=== PATIENT | male | born 1955 | race Caucasian/White ===

== ENCOUNTER 2021-05-17 07:50 | Inpatient (IN) | payer MEDICARE, MEDICAID, SELFPAY ==
[2021-05-17] VITALS (7 sets, daily range): BP systolic 99–110; BP diastolic 50–77; PULSE 71–100; RESP 11–24; TEMP 36.9–38.7; O2SAT 84–100; BMI 22.1; BMI 15.8
--- NOTE | ~2021-05-17 | CT_ITS ---
EXAMINATION: CT HEAD WITHOUT CONTRAST CLINICAL INFORMATION: Acute mental status change COMPARISON: None TECHNIQUE: Contiguous axial imaging was performed from the skull base to vertex without intravenous administration of contrast. This CT examination was performed using dose optimization techniques as appropriate, variously including the following: *Automated exposure control *Adjustment of mA and/or kV according to patient size (this includes techniques or standardized protocols for targeted exams where dose is matched to indication/reason for exam; i.e. extremities or head) *Use of iterative reconstruction technique DLP: 927 mGy-cm FINDINGS: There is no evidence of an extra-axial collection. There is no evidence of intra-axial or extra-axial hemorrhage. There are atrophic changes of the posterior fossa/inferior cerebellum and prominent cisterna magna. The ventricles and extra-axial CSF spaces are otherwise appropriate. Melo-white matter differentiation is normal. No mass, mass effect or infarct is seen. No skull fracture is seen. Visualized paranasal sinuses, mastoid air cells and middle ears are clear. There is heterogeneous attenuation of the sphenoid sinus. No focal bone lesion is seen. There are degenerative changes of the temporomandibular joints. CT/CT head/brain wo con IMPRESSION: No acute findings. Atrophic changes in the posterior fossa.
--- NOTE | ~2021-05-17 | XR_ITS ---
EXAMINATION: XR CHEST CLINICAL INFORMATION: Fever and urinary retention COMPARISON: None TECHNIQUE: Frontal view of the chest was obtained. FINDINGS: The cardiac and mediastinal contours are normal. There is marked elevation of the left hemidiaphragm. There are increased right hilar markings with bronchial wall thickening and question of atelectasis or infiltrate. The left lung is not well visualized due to the elevated left hemidiaphragm. The visualized left upper lung appears clear. There is no pleural effusion or pneumothorax. Bony structures are unremarkable. XR/XR chest 1V IMPRESSION: Very elevated left hemidiaphragm. Increased right central lung markings suggestive of bronchial wall thickening and question peribronchial atelectasis or small infiltrate.
--- NOTE | ~2021-05-17 | CT_ITS ---
EXAMINATION: CT ANGIOGRAM OF THE CHEST WITH AND WITHOUT CONTRAST (CT PULMONARY ANGIOGRAM FOR PE) CLINICAL INFORMATION: Reason for Exam pt c sob hx of covid nonverbal low oxygen/fever COMPARISON: Chest x-ray earlier the same day. TECHNIQUE: Prior to contrast administration, noncontrast localization images were obtained. Subsequently, multidetector volumetric imaging was performed from the thoracic inlet to below the diaphragms following the administration of 85 mL Omnipaque 350 intravenous contrast. No contrast reaction reported Sagittal, coronal, and MIP oblique sagittal reformatted images were obtained on the CT workstation, uploaded to PACS, and reviewed. This CT examination was performed using dose optimization techniques as appropriate, variously including the following: *Automated exposure control *Adjustment of mA and/or kV according to patient size (this includes techniques or standardized protocols for targeted exams where dose is matched to indication/reason for exam; i.e. extremities or head) *Use of iterative reconstruction technique Total exam dose-length product 408 mGy-cm FINDINGS: QUALITY OF STUDY/CONTRAST BOLUS: Satisfactory. PULMONARY ARTERIES: No central or segmental pulmonary emboli. THORACIC AORTA: No aneurysm or dissection. LUNG: There are peribronchial nodular groundglass opacities seen in the right upper lobe and denser nodular opacities and patchy areas of airspace disease in the right lower lobe probably representing pneumonia. Given the dilated fluid-filled esophagus and stomach, possible aspiration should be considered. There is marked elevation of the left hemidiaphragm. There is adjacent subsegmental atelectasis or small pneumonia of the left lower lobe. PLEURA: No pleural effusion or pneumothorax. MEDIASTINUM: The stomach and esophagus are markedly dilated and fluid-filled. The heart does not appear enlarged. There is no pericardial effusion. There are no enlarged lymph nodes. CHEST WALL/AXILLA: No axillary or internal mammary lymphadenopathy. OSSEOUS STRUCTURES: No acute or suspicious osseous abnormality. UPPER ABDOMEN: No reflux of contrast into the hepatic veins to suggest elevated right heart pressures. CT/CT angio chest PE protocol IMPRESSION: No evidence of pulmonary embolism. Very high left hemidiaphragm. Very dilated fluid-filled esophagus and stomach. Right upper and right lower lobe pneumonia. Possible aspiration should be considered. VTE: negative
--- NOTE | ~2021-05-17 | XR_ITS ---
EXAMINATION: XR ABDOMEN KUB CLINICAL INDICATION: Follow-up dilated bowel COMPARISON: Previous KUB most recent 05/19/2021 TECHNIQUE: AP view of the abdomen. FINDINGS: There are gas filled loops of small and large bowel similar to previous exam. There is stool seen in the distal colon. There is no evidence of free air. No calcifications are seen. Bony structures are unremarkable. XR/XR KUB IMPRESSION: Gas-filled loops of small and large bowel and stool in the distal colon similar to previous exam.
--- NOTE | ~2021-05-17 | CT_ITS ---
EXAMINATION: CT ABDOMEN AND PELVIS WITH CONTRAST CLINICAL INFORMATION: Fever and urinary retention COMPARISON: Fever and urinary retention TECHNIQUE: Multidetector volumetric images were obtained from the superior aspect of the liver through the pubic symphysis following administration 85 mL of Omnipaque 350 intravenous contrast. Sagittal and coronal reformatted images were obtained on the technologist's workstation. Oral contrast: No This CT examination was performed using dose optimization techniques as appropriate, variously including the following: *Automated exposure control *Adjustment of mA and/or kV according to patient size (this includes techniques or standardized protocols for targeted exams where dose is matched to indication/reason for exam; i.e. extremities or head) *Use of iterative reconstruction technique DLP: 648 mGy-cm FINDINGS: LUNG BASES: See chest CT the same day LIVER, GALLBLADDER, AND BILIARY TREE: The liver is normal in size, shape, and attenuation. No focal hepatic lesion or biliary ductal dilatation is present. The gallbladder is unremarkable with no evidence of radiopaque gallstones, gallbladder wall thickening, or obvious pericholecystic inflammatory changes. PANCREAS: Unremarkable. SPLEEN: Unremarkable. ADRENAL GLANDS: Unremarkable. KIDNEYS AND URETERS: There are bilateral renal cysts. The kidneys are otherwise unremarkable. BLADDER: Bladder is compressed by the dilated stool-filled sigmoid colon. There may be mild bladder wall thickening and enhancement. There is question of a tiny amount of air in the bladder axial image 100 series 17. GASTROINTESTINAL TRACT: There is marked elevation of the left hemidiaphragm. The esophagus stomach and duodenum are very dilated and fluid-filled. The jejunum is normal in caliber. The obstruction and severe stasis or ileus should be considered. Possible lesion should be considered. The distal colon is very dilated and filled with stool suggestive of severe constipation and fecal impaction. There is apparent wall thickening of the right colon. This may be due to underdistention. The appendix is not seen. There is a small amount of fluid in the right lower quadrant. ABDOMINAL WALL: No significant hernia is appreciated. LYMPH NODES: Normal. VASCULAR: Unremarkable. PELVIC VISCERA: Unremarkable. OSSEOUS STRUCTURES: Unremarkable. CT/CT abdomen pelvis w con IMPRESSION: Very dilated fluid-filled esophagus, stomach and duodenum. The jejunum does not appear dilated. Distal duodenal obstruction and severe stasis or ileus should be considered. There is a severe constipation and fecal impaction. Small amount of ascites in the right lower quadrant. Significant mass effect on the bladder from a stool-filled colon. There is question of mild diffuse bladder wall enhancement and tiny amount of air in the right side of the bladder. Fleischner guidelines were followed.
--- NOTE | ~2021-05-17 | XR_ITS ---
EXAMINATION: XR ABDOMEN KUB CLINICAL INDICATION: Obstruction COMPARISON: Abdominal radiograph 05/18/[address] of the abdomen and pelvis 05/17/2021 TECHNIQUE: AP view of the abdomen. FINDINGS: Enteric tube with tip in the stomach, with side hole at the GE junction, similar to the prior study. Consider advancement. Slightly decreased gaseous distention of mid abdominal small bowel loops. Again demonstrated is air in the colon. There is a decreased amount of stool. No acute osseous abnormality. XR/XR KUB IMPRESSION: Decreased amount of stool in the colon, with improved but persistent gaseous distention of mid abdominal small bowel loops.
--- NOTE | ~2021-05-17 | XR_ITS ---
EXAMINATION: XR ABDOMEN KUB CLINICAL INDICATION: Dilated esophagus and duodenum. COMPARISON: CT abdomen and pelvis without contrast. TECHNIQUE: AP view of the abdomen. FINDINGS: There is a new nasogastric tube with its tip in the stomach and sidehole at the GE junction. Needs to be advanced by 10 cm. There is scattered gas seen throughout the colon but mildly dilated proximal small bowel loop similar previous study. There are mid smaller bowel loops are dilated as well. There is contrast visualized in the right abdomen likely distended bladder. There is likely fecal impaction. No gross bony abnormality seen. XR/XR KUB IMPRESSION: Moderately distended proximal small bowel loops and some prominence of distal small bowel loops but improved from CT abdomen/pelvis exam 12/17/2021. There is likely fecal impaction.
--- NOTE | 2021-05-17 08:08 | PC.NURSE ---
Bladder scan 684ml RN aware.
--- NOTE | 2021-05-17 08:27 | PC.NURSE ---
Pt bladder scanned, 684 mL present
--- NOTE | 2021-05-17 09:52 | PC.NURSE ---
Spoke with patient's HCP and brother, [facility] [phone]. States that he does not want any artificial life sustaining measures ; does not want compressions if patient's heart stops or a tube down patient's throat if his lungs deteriorate. Agreeable to fluids, antibiotics, imaging, and admission if needed.
[2021-05-17 09:55] LABS: MANUAL DIFF FLAG NO
[2021-05-17 09:57] LABS: Basophils Percent Auto 0.2 % (0-2); Hematocrit 41.1 % (42.0-52.0); Hemoglobin 13.4 g/dl (14.0-18.0); Imm Gran Abs Auto 0.04 X10*3/uL (0.00-0.03); Imm Gran Pct Auto 0.4 % (0.0-0.4); Lymphocytes Absolute Auto 1.2 X10*3/uL (1.2-4.9); Lymphocytes Percent Auto 13.5 % (20-40); Mean Corpuscular HGB Conc 32.6 g/dl (31.0-36.0); Mean Corpuscular Hemoglobin 31.6 pg (27.0-33.0); Mean Corpuscular Volume 96.9 fL (80.0-98.0); Mean Platelet Volume 10.8 fL (9.4-12.4); Monocytes Absolute Auto 0.6 X10*3/uL (0.1-1.2); Monocytes Percent Auto 6.2 % (2-11); Neutrophils Absolute Auto 7.2 x10*3/uL (2.0-8.3); Neutrophils Percent Auto 79.7 % (45-73); Platelet Count 145 X10*3/uL (160-400); Red Blood Count 4.24 X10*6/uL (4.60-5.80)
[2021-05-17 10:03] LABS: INTERNATIONAL NORM RATIO 1.4 (0.9-1.1); Prothrombin Time 16.5 SEC (9.9-13.0)
[2021-05-17 10:11] LABS: Lactic Acid 1.8 mmol/L (0.5-2.0)
[2021-05-17 10:12] LABS: COVID-19 Test Negative (Negative)
[2021-05-17] MEDS: 0.9 % Sodium Chloride 1,000 ML 999 ML IVCONT (10:17)
[2021-05-17] MEDS: Acetaminophen Supp 650 MG SUPP.RECT 975 MG PR (10:17)
[2021-05-17 11:14] LABS: Influenza A Negative (Negative); Influenza B2 Negative (Negative)
--- NOTE | 2021-05-17 11:16 | ED.FEVER ---
HPI - Fever General Chief Complaint: Fever Stated Complaint: fever Time Seen by Provider: 05/17/21 09:21 Source: patient and other ([facility] [employer] ) Mode of arrival: EMS Limitations: other (Patient nonverbal at baseline) History of Present Illness HPI Narrative: 65-year-old male who is currently in a prison presenting to the ED via EMS with prison staff financial risk manager at bedside who reports that the patient is nonverbal, severely contracted and has a history of a seizure currently on Depakote although his last seizure was 20 years ago with complaints of increased weakness with associated not wanting to eat or drink since yesterday and drooling. She reports that he is a total care patient, he uses a Ken lift for transfer, eats pureed diet. He has a brother who signed a MOLST form in 2017 and it was DNR/DNI and do not transfer to hospital therefore initially EMS did not want to transfer into the hospital and they were able to contact the brother who reported that the patient could be transferred to the hospital. The nurse Ray was able to feet to the brother [facility] [phone] and he reported ?that he did not want any artificial life sustaining measures such as CPR or ventilation or any artificial nutrition or dialysis or any noninvasive ventilation although he will accept blood work, x-rays, CT scans, IV fluids and IV antibiotics. Therefore I called the brother and I discussed this with him myself and he admitted to what the nurse Flor told me. He reports that he lives in [facility] and he will come here today to sign a new MOLST form. The brother also reported that the patient has a history of COVID in February last year and he had a single Alex and Alex vaccine he is unsure if he received a booster since then. Otherwise patient is not on any blood thinners. MD elicited complaint: fever and weakness Onset (ago): day(s) (Since yesterday) Related Data Home Medications Medication Instructions Recorded Confirmed Probiotic 1 cap PO DAILY 05/17/21 05/17/21 divalproex 500 mg tablet,delayed 1 tab PO BID 05/17/21 05/17/21 release loratadine 10 mg tablet 10 mg PO DAILY PRN 05/17/21 05/17/21 multivitamin 1 tab PO DAILY 05/17/21 05/17/21 omeprazole 40 mg capsule,delayed 1 cap PO DAILY 05/17/21 05/17/21 release Allergies Allergy/AdvReac Type Severity Reaction Status Date / Time No Known Allergies Allergy Verified 05/17/21 09:21 Review of Systems Review of Systems: Yes all other systems are reviewed and are negative and Unobtainable due to mental condition [facility] Past Medical History Attestation statement: The following information was validated with the patient. Social History Social History Advance Directives: No Advance Directives Information Provided: No Physical Exam Vital Signs: Vital Signs: Last Vital Signs Temp 99.6 F 05/17/21 12:00 Pulse 85 05/17/21 12:00 Resp 12 05/17/21 12:00 BP 109/65 05/17/21 12:00 Pulse Ox 97 05/17/21 12:00 BMI result Body Mass Index 15.8 vital signs have been reviewed as normal and appeared to be correct. Blood pressure normal. Heart rate normal. Respiration rate 24. Temperature 101.7. Oxygen saturation 84% on RA. Appearance: Alert. Nonverbal. Severely contracted. No acute distress. Head: Normal external exam. Normocephalic. Atraumatic. No Smiley signs noted. No raccoon eyes noted Eyes: PERRLA. EOMI. Conjunctiva and sclera normal. Eyelids normal. ENT: EAC normal. TM's Normal. No septal hematoma noted. No hemotympanum noted. Pharynx normal. Uvula midline. Moist mucous membranes. No lesions/ulcerations or masses noted on the tongue. Normal voice. No trismus noted. + Drooling noted. Neck: Normal inspection. Neck supple. FROM. No adenopathy. Thyroid Normal. No tracheal deviation noted. No crepitus is noted. No meningeal signs. No neck mass noted. No signs of trauma noted. CVS: Normal heart rate and rhythm. Heart sound normal. Pulses normal throughout. No murmurs/rales/gallops. Respiratory: No respiratory distress. Painless inspiration. Breath sounds normal. No wheezes/rales/rhonchi noted. Chest nontender. No crepitus is noted. No signs of trauma noted. No accessory muscle usage noted or decreased air movement noted. No signs of trauma. Abdomen: Soft and nontender. Bowel sounds normal in all 4 quadrants. No distention noted. No organomegaly noted. No visible injury noted. Back: No CVA tenderness. Full range of motion noted. Nontender. No signs of trauma. No rashes/lesion/induration/fluctuance or signs of infection noted. Skin: Skin warm and dry. Normal skin color. Normal skin turgor. No rashes/lesions/lacerations noted. Extremities: No lower extremity edema. No calf tenderness is noted. Extremities are severely contracted although there are no signs of infection or joint effusions. Neuro: Alert. Nonverbal. Severely contracted. No focal neuro deficits noted. Vascular: + radial pulses/+ 2 distal pedal pulses/+2 dorsalis pedis b/l. Normal cap refill. No cyanosis noted to upper extremity nails and lower extremity toes nails. Course Course Course Narrative: 9:20am - 65-year-old male who is currently in a prison presenting to the ED via EMS with prison staff financial risk manager at bedside who reports that the patient is nonverbal, severely contracted and has a history of a seizure currently on Depakote although his last seizure was 20 years ago with complaints of increased weakness with associated not wanting to eat or drink since yesterday and drooling. She reports that he is a total care patient, he uses a Ken lift for transfer, eats pureed diet. He has a brother who signed a MOLST form in 2017 and it was DNR/DNI and do not transfer to hospital therefore initially EMS did not want to transfer into the hospital and they were able to contact the brother who reported that the patient could be transferred to the hospital. The nurse Ray was able to feet to the brother [facility] [phone] and he reported ?that he did not want any artificial life sustaining measures such as CPR or ventilation or any artificial nutrition or dialysis or any noninvasive ventilation although he will accept blood work, x-rays, CT scans, IV fluids and IV antibiotics. Therefore I called the brother and I discussed this with him myself and he admitted to what the nurse Ray told me. He reports that he lives in [facility] and he will come here today to sign a new MOLST form. The brother also reported that the patient has a history of COVID in February last year and he had a single Alex and Alex vaccine he is unsure if he received a booster since then. Otherwise patient is not on any blood thinners. On exam patient is alert although nonverbal severely contracted. No acute neuro deficits are noted. Lungs clear to auscultation. CV RRR. Abdomen is soft and nontender. No rashes or signs of trauma throughout the entire body. Plan: Labs, blood culture, lactic acid, CT scan of brain, CTA of chest for PE, CT scan abdomen pelvis with IV contrast, UA, bladder scan/straight catheter Ferrera catheter, COVID and influenza swab. Provide a L of IV fluids with 975 mg of rectal Tylenol then re-evaluate. Reevaluation(s) Reevaluation #1: - Labs reviewed patient mild anemia with an H&H of 13.4/41.1. Platelet count 145. PT INR 16.5/1.4. BUN 28. Random glucose 124. AST 41. Troponin 6.1. Total protein 8.2. Albumin 3.4. Otherwise all other labs are within normal limits. - patient negative for COVID and flu. - CT scan of brain without contrast within normal limits no acute processes are noted. - chest x-ray revealed elevated left hemo diaphragm with increased right central lung markings suggestive of bronchial wall thickening and questioning peribronchial atelectasis or small infiltrate. - therefore at this time will obtain a CT scan of chest with contrast evaluate for possible PE and to evaluate for possible definite pneumonia due to chest x-ray unsure if this is atelectasis versus small infiltrate or any other acute process seen a CT scan abdomen pelvis with IV contrast to evaluate for possible intra-abdominal processes. - they were unable to straight cath or place a Ferrera and the patient after the bladder scan and when he was on a CT scan table he urinated the table therefore will continue to attempt to obtain a urine and re-evaluate. Awaiting for brother to come in to sign a new MOLST form. Will continue to monitor. Time: 12:20 Reevaluation #2: - CTA of chest for PE negative for PE although revealed very high left hemo diaphragm. Very dilated fluid-filled esophagus and stomach. Right upper and right lower lobe pneumonia. Possible aspiration should be considered. Therefore at this time a infectious source was found and patient will be given IV Zosyn at this time. Time: 13:43 Reevaluation #3: - CT scan of abdomen and pelvis with IV contrast revealed possible bowel impaction no obvious obstruction although unable to completely visualize. Therefore I consulted with surgery. Dr. Rodriguez. - also brother is at bedside and he signed a new MOLST form and patient is still DNR/DNI although he is now transferred to hospital. He also agrees to temporary artificial hydration and he also agreed to an NG tube. He does not want surgery at this time for his brother he is the legal guardian. - therefore I consulted with Dr. Rodriguez and Dr. Thomas. I will attempt to disimpact the patient with an enema and then place an NG tube in patient will be admitted to Dr. Thakkar brother and prison staff member understand and agree to this plan they are at bedside. Time: 14:44 Additional Reevaluation(s): - patient is now status post stool impaction. I was able to disimpact moderate amount of stool and patient is now smiling on exam appears much more comfortable. Patient will be admitted. Rosemary Lay Out Worker at [phone] MDM - Fever Medical Records Attestation: I reviewed the patient's medical records. Lab Data Attestation: I reviewed the patient's lab results. Result diagrams: 05/17/21 09:40 05/17/21 10:52 Labs: Lab Results 05/17/21 05/17/21 05/17/21 Range/Units 09:40 09:40 09:40 WBC 9.0 (4.8-10.8) X10*3/uL RBC 4.24 L (4.60-5.80) X10*6/uL Hgb 13.4 L (14.0-18.0) g/dl Hct 41.1 L (42.0-52.0) % MCV 96.9 (80.0-98.0) fL MCH 31.6 (27.0-33.0) pg MCHC 32.6 (31.0-36.0) g/dl RDW 15.0 (11.0-16.0) % Plt Count 145 L (160-400) X10*3/uL MPV 10.8 (9.4-12.4) fL Immature Gran % (Auto) 0.4 (0.0-0.4) % Neut % (Auto) 79.7 H (45-73) % Lymph % (Auto) 13.5 L (20-40) % [place] % (Auto) 6.2 (2-11) % Eos % (Auto) 0.0 (0-4) % Baso % (Auto) 0.2 (0-2) % Lymph # (Auto) 1.2 (1.2-4.9) X10*3/uL [place] # (Auto) 0.6 (0.1-1.2) X10*3/uL Eos # (Auto) 0.0 (0.0-0.4) X10*3/uL Baso # (Auto) 0.0 (0.0-0.2) X10*3/uL Abs Immat Gran (auto) 0.04 H (0.00-0.03) X10*3/uL Absolute Neuts (auto) 7.2 (2.0-8.3) x10*3/uL Absolute Nucleated RBC 0.000 (0.0-0.012) X10*3/uL Nucleated RBC % (auto) 0.0 (0.0-0.2) /100WBC Hold Purple Top PT 16.5 H (9.9-13.0) SEC INR 1.4 H (0.9-1.1) Sodium (135-145) mmol/L Potassium (3.3-5.1) mmol/L Chloride (96-108) mmol/L Carbon Dioxide (22-29) mmol/L Anion Gap (12-20) BUN (9-16) mg/dL Creatinine (0.5-1.4) mg/dL Estim Creat Clear Calc Estimated GFR Random Glucose (60-115) mg/dL Lactic Acid 1.8 (0.5-2.0) mmol/L Calcium (8.4-10.2) mg/dL Magnesium (1.6-2.6) mg/dL Total Bilirubin (0.0-1.0) mg/dL AST (5-37) U/L ALT (0-40) U/L Alkaline Phosphatase (39-117) U/L Troponin I High Sens (<3.5-35.0) ng/L Total Protein (6.5-8.0) g/dL Albumin (3.5-5.0) g/dL COVID-19 ([facility]ON) (Negative) COVID-19 Clin Com Influenza Type A (CORIN) (Negative) Influenza Type B (CORIN) (Negative) Influenza A & B Note 05/17/21 05/17/21 05/17/21 Range/Units 09:40 09:40 09:40 WBC (4.8-10.8) X10*3/uL RBC (4.60-5.80) X10*6/uL Hgb (14.0-18.0) g/dl Hct (42.0-52.0) % MCV (80.0-98.0) fL MCH (27.0-33.0) pg MCHC (31.0-36.0) g/dl RDW (11.0-16.0) % Plt Count (160-400) X10*3/uL MPV (9.4-12.4) fL Immature Gran % (Auto) (0.0-0.4) % Neut % (Auto) (45-73) % Lymph % (Auto) (20-40) % [place] % (Auto) (2-11) % Eos % (Auto) (0-4) % Baso % (Auto) (0-2) % Lymph # (Auto) (1.2-4.9) X10*3/uL [place] # (Auto) (0.1-1.2) X10*3/uL Eos # (Auto) (0.0-0.4) X10*3/uL Baso # (Auto) (0.0-0.2) X10*3/uL Abs Immat Gran (auto) (0.00-0.03) X10*3/uL Absolute Neuts (auto) (2.0-8.3) x10*3/uL Absolute Nucleated RBC (0.0-0.012) X10*3/uL Nucleated RBC % (auto) (0.0-0.2) /100WBC Hold Purple Top SEE NOTE PT (9.9-13.0) SEC INR (0.9-1.1) Sodium (135-145) mmol/L Potassium (3.3-5.1) mmol/L Chloride (96-108) mmol/L Carbon Dioxide (22-29) mmol/L Anion Gap (12-20) BUN (9-16) mg/dL Creatinine (0.5-1.4) mg/dL Estim Creat Clear Calc Estimated GFR Random Glucose (60-115) mg/dL Lactic Acid (0.5-2.0) mmol/L Calcium (8.4-10.2) mg/dL Magnesium (1.6-2.6) mg/dL Total Bilirubin (0.0-1.0) mg/dL AST (5-37) U/L ALT (0-40) U/L Alkaline Phosphatase (39-117) U/L Troponin I High Sens 6.1 (<3.5-35.0) ng/L Total Protein (6.5-8.0) g/dL Albumin (3.5-5.0) g/dL COVID-19 ([facility]ON) Negative (Negative) COVID-19 Clin Com See Note Influenza Type A (CORIN) (Negative) Influenza Type B (CORIN) (Negative) Influenza A & B Note 05/17/21 05/17/21 05/17/21 Range/Units 10:52 10:53 12:50 WBC (4.8-10.8) X10*3/uL RBC (4.60-5.80) X10*6/uL Hgb (14.0-18.0) g/dl Hct (42.0-52.0) % MCV (80.0-98.0) fL MCH (27.0-33.0) pg MCHC (31.0-36.0) g/dl RDW (11.0-16.0) % Plt Count (160-400) X10*3/uL MPV (9.4-12.4) fL Immature Gran % (Auto) (0.0-0.4) % Neut % (Auto) (45-73) % Lymph % (Auto) (20-40) % [place] % (Auto) (2-11) % Eos % (Auto) (0-4) % Baso % (Auto) (0-2) % Lymph # (Auto) (1.2-4.9) X10*3/uL [place] # (Auto) (0.1-1.2) X10*3/uL Eos # (Auto) (0.0-0.4) X10*3/uL Baso # (Auto) (0.0-0.2) X10*3/uL Abs Immat Gran (auto) (0.00-0.03) X10*3/uL Absolute Neuts (auto) (2.0-8.3) x10*3/uL Absolute Nucleated RBC (0.0-0.012) X10*3/uL Nucleated RBC % (auto) (0.0-0.2) /100WBC Hold Purple Top PT (9.9-13.0) SEC INR (0.9-1.1) Sodium 144 (135-145) mmol/L Potassium 4.9 (3.3-5.1) mmol/L Chloride 104 (96-108) mmol/L Carbon Dioxide 28 (22-29) mmol/L Anion Gap 17 (12-20) BUN 28 H (9-16) mg/dL Creatinine 0.80 (0.5-1.4) mg/dL Estim Creat Clear Calc 72.7 Estimated GFR > 60 Random Glucose 124 H (60-115) mg/dL Lactic Acid (0.5-2.0) mmol/L Calcium 9.3 (8.4-10.2) mg/dL Magnesium 1.8 (1.6-2.6) mg/dL Total Bilirubin 0.5 (0.0-1.0) mg/dL AST 41 H (5-37) U/L ALT 23 (0-40) U/L Alkaline Phosphatase 63 (39-117) U/L Troponin I High Sens 8.7 (<3.5-35.0) ng/L Total Protein 8.2 H (6.5-8.0) g/dL Albumin 3.4 L (3.5-5.0) g/dL COVID-19 ([facility]ON) (Negative) COVID-19 Clin Com Influenza Type A (CORIN) Negative (Negative) Influenza Type B (CORIN) Negative (Negative) Influenza A & B Note See Note Imaging Data CT scan of brain without contrast: Attestation: I personally reviewed and interpreted this imaging study as follows: Radiologist's impression: FINDINGS: There is no evidence of an extra-axial collection. There is no evidence of intra-axial or extra-axial hemorrhage. There are atrophic changes of the posterior fossa/inferior cerebellum and prominent cisterna magna. The ventricles and extra-axial CSF spaces are otherwise appropriate. Melo-white matter differentiation is normal. No mass, mass effect or infarct is seen. No skull fracture is seen. Visualized paranasal sinuses, mastoid air cells and middle ears are clear. There is heterogeneous attenuation of the sphenoid sinus. No focal bone lesion is seen. There are degenerative changes of the temporomandibular joints. CT/CT head/brain wo con IMPRESSION: No acute findings. Atrophic changes in the posterior fossa. Chest x-ray: Attestation: I personally reviewed and interpreted this imaging study as follows: Radiologist's impression: FINDINGS: The cardiac and mediastinal contours are normal. There is marked elevation of the left hemidiaphragm. There are increased right hilar markings with bronchial wall thickening and question of atelectasis or infiltrate. The left lung is not well visualized due to the elevated left hemidiaphragm. The visualized left upper lung appears clear. There is no pleural effusion or pneumothorax. Bony structures are unremarkable. XR/XR chest 1V IMPRESSION: Very elevated left hemidiaphragm. Increased right central lung markings suggestive of bronchial wall thickening and question peribronchial atelectasis or small infiltrate. CTA of chest for PE: Attestation: I personally reviewed and interpreted this imaging study as follows: Radiologist's impression: FINDINGS: QUALITY OF STUDY/CONTRAST BOLUS: Satisfactory. PULMONARY ARTERIES: No central or segmental pulmonary emboli.? THORACIC AORTA: No aneurysm or dissection. LUNG: There are peribronchial nodular groundglass opacities seen in the right upper lobe and denser nodular opacities and patchy areas of airspace disease in the right lower lobe probably representing pneumonia. Given the dilated fluid-filled esophagus and stomach, possible aspiration should be considered. There is marked elevation of the left hemidiaphragm. There is adjacent subsegmental atelectasis or small pneumonia of the left lower lobe. PLEURA: No pleural effusion or pneumothorax. MEDIASTINUM: The stomach and esophagus are markedly dilated and fluid-filled. The heart does not appear enlarged. There is no pericardial effusion. There are no enlarged lymph nodes. CHEST WALL/AXILLA: No axillary or internal mammary lymphadenopathy. OSSEOUS STRUCTURES: No acute or suspicious osseous abnormality.? UPPER ABDOMEN:? No reflux of contrast into the hepatic veins to suggest elevated right heart pressures. CT/CT angio chest PE protocol IMPRESSION: No evidence of pulmonary embolism. Very high left hemidiaphragm. Very dilated fluid-filled esophagus and stomach. Right upper and right lower lobe pneumonia. Possible aspiration should be considered. ? VTE: negative CT scan abdomen pelvis with IV contrast: Attestation: I personally reviewed and interpreted this imaging study as follows: Radiologist's impression: FINDINGS: LUNG BASES: See chest CT the same day LIVER, GALLBLADDER, AND BILIARY TREE: The liver is normal in size, shape, and attenuation. No focal hepatic lesion or biliary ductal dilatation is present. The gallbladder is unremarkable with no evidence of radiopaque gallstones, gallbladder wall thickening, or obvious pericholecystic inflammatory changes.? PANCREAS: Unremarkable.? SPLEEN: Unremarkable.? ADRENAL GLANDS: Unremarkable.? KIDNEYS AND URETERS: There are bilateral renal cysts. The kidneys are otherwise unremarkable.? BLADDER: Bladder is compressed by the dilated stool-filled sigmoid colon. There may be mild bladder wall thickening and enhancement. There is question of a tiny amount of air in the bladder axial image 100 series 17.? GASTROINTESTINAL TRACT: There is marked elevation of the left hemidiaphragm. The esophagus stomach and duodenum are very dilated and fluid-filled. The jejunum is normal in caliber. The obstruction and severe stasis or ileus should be considered. Possible lesion should be considered. The distal colon is very dilated and filled with stool suggestive of severe constipation and fecal impaction. There is apparent wall thickening of the right colon. This may be due to underdistention. The appendix is not seen. There is a small amount of fluid in the right lower quadrant.? ABDOMINAL WALL: No significant hernia is appreciated.? LYMPH NODES: Normal. VASCULAR: Unremarkable. PELVIC VISCERA: Unremarkable.? OSSEOUS STRUCTURES: Unremarkable.? CT/CT abdomen pelvis w con IMPRESSION: Very dilated fluid-filled esophagus, stomach and duodenum. The jejunum does not appear dilated. Distal duodenal obstruction and severe stasis or ileus should be considered. There is a severe constipation and fecal impaction. Small amount of ascites in the right lower quadrant. Significant mass effect on the bladder from a stool-filled colon. There is question of mild diffuse bladder wall enhancement and tiny amount of air in the right side of the bladder. ? Fleischner guidelines were followed. ECG Data ECG #1: Attestation: I personally reviewed and interpreted this ECG as follows: ECG interpretation date: 05/17/21 ECG interpretation time: 10:10 Interpretation: Sinus rhythm with short ND with premature atrial complex is within circulate of 88 with nonspecific T-wave abnormalities no acute ischemic change are noted. No prior EKG to compare to in our system at this time. Critical Care Time Critical Care Time Critical Care Time: Yes Total Critical Care Time: 60 Attestation: I personally attest to this time spent taking care of the patient Discharge Plan Discharge Clinical Impression: Pneumonia, Fecal impaction, Fever Patient Disposition: Admitted As Inpatient
[2021-05-17 11:20] LABS: Alanine Aminotransferase 23 U/L (0-40); Albumin Level 3.4 g/dL (3.5-5.0); Alkaline Phosphatase 63 U/L (39-117); Anion Gap 17 (12-20); Aspartate Amino Transferase 41 U/L (5-37); Bilirubin Total 0.5 mg/dL (0.0-1.0); Blood Urea Nitrogen 28 mg/dL (9-16); Calcium 9.3 mg/dL (8.4-10.2); Carbon Dioxide 28 mmol/L (22-29); Chloride 104 mmol/L (96-108); Creatinine Clr Calc Pharmacy 72.7; Estimated Glomerular Filt Rate > 60; Glucose Random 124 mg/dL (60-115); Magnesium 1.8 mg/dL (1.6-2.6); Potassium 4.9 mmol/L (3.3-5.1); Sodium 144 mmol/L (135-145); Total Protein 8.2 g/dL (6.5-8.0)
[2021-05-17 11:44] LABS: Troponin-I High Sensitivity 6.1 ng/L (<3.5-35.0)
[2021-05-17] MEDS: iohexoL 350 MG/ML 100 ML INFUS..BTL IV (12:17)
[2021-05-17 13:16] LABS: Troponin-I High Sensitivity 8.7 ng/L (<3.5-35.0)
--- NOTE | 2021-05-17 13:56 | PHA.MEDREC ---
Pharmacy Consult ? Medication Reconciliation Pharmacy has completed the medication reconciliation. Patient has a medication list from the long term. Dean BlackD
[2021-05-17] MEDS: Piperacillin Sodium/Tazobactam 3.375 GM in 0.9 % Sodium Chloride 50 ML IV ×2 (13:57→21:39)
[2021-05-17] MEDS: Sodium Phosphate,Mono-Dibasic 133 ML ENEMA PR ×2 (14:48→15:01)
--- NOTE | 2021-05-17 15:22 | MHC.CM.ED ---
Rosemary from retirement can be reached via telephone at [phone].
[2021-05-17] MEDS: Lidocaine HCl 4 % Laryng-O-Jet 4 ML 1 APPL TOPICAL (15:27)
--- NOTE | 2021-05-17 15:29 | PM.IMHP ---
History of Present Illness Date of Service: 05/17/21 Chief Complaint: Altered mentation, lethargy a 65 years old male with PMH of development chin inch, CRS who lives in a assisted presented by the staff for altered mentation, decreased oral intake and lethargy. The staff reports that over the last few days he has been less active and weaker with decreased oral intake. This morning the found him drooling with altered mentation and he was not responding much so they decided to bring him to the hospital. The patient is nonverbal, uses Ken lift for transfers and eat pureed diet. I met with his brother who reported that his mother was taking care of his older brother until she passed and he was moved to assisted. there was a confusion about his code status until his pressors HCP sign and you most form requesting not to do any heroic measures and to treat his brother with dignity a without trying to prolong his life. The patient was found to have significant amount of stool burden with concern of ileus or intestinal obstruction. Many 1 disimpaction was done in the emergency with success as the patient start having bowel movement and he looks more comfortable when I interviewed him. Images were concerning for possible aspiration as well. Admitted for further evaluation and treatment. Review of Systems Review of Systems: Nonverbal [facility] Medical History (Updated 05/17/21 @ 15:36 by Mando Cadena MD) Intellectual disability Family History Brother No problems noted. Social History Advance Directives: No Advance Directives Information Provided: No Meds Allergies Allergy/AdvReac Type Severity Reaction Status Date / Time No Known Allergies Allergy Verified 05/17/21 09:21 Active Medications: Current Medications Acetaminophen (Acetaminophen 325 Mg Tablet) 650 mg PO Q6H PRN PRN Reason: Pain, Mild (Pain Scale 1-3) Enoxaparin Sodium (Enoxaparin Sodium 40 Mg/0.4 Ml Syringe) 40 mg SUBCUT Q24H [facility] Lactated Ringer's (Lr) 1,000 mls @ 80 mls/hr IVCONT .[id number] SHARON Ondansetron HCl (Ondansetron Hcl 4 Mg/2 Ml Vial) 4 mg IVPUSH Q8H PRN PRN Reason: Nausea and Vomiting Pharmacy Consult (Consult Rx Perform Med Rec) 1 each MISCELLANE ONCE PRN PRN Reason: Consult order Sodium Chloride (0.9 % Sodium Chloride Flush 3 Ml Syringe) [facility] Medications Medication Instructions Recorded Confirmed Last Taken Type Probiotic 1 cap PO DAILY 05/17/21 05/17/21 05/16/21 History divalproex 500 mg tablet,delayed 1 tab PO BID 05/17/21 05/17/21 05/16/21 History release loratadine 10 mg tablet 10 mg PO DAILY PRN 05/17/21 05/17/21 05/16/21 History multivitamin 1 tab PO DAILY 05/17/21 05/17/21 05/16/21 History omeprazole 40 mg capsule,delayed 1 cap PO DAILY 05/17/21 05/17/21 05/16/21 History release Physical Exam Vital Signs and Narrative: Vital Signs: Last Vital Signs Temp 99.6 F 05/17/21 12:00 Pulse 85 05/17/21 12:00 Resp 12 05/17/21 12:00 BP 109/65 05/17/21 12:00 Pulse Ox 97 05/17/21 12:00 BMI result Body Mass Index 15.8 Const: Other: Constitutional : Alert, mildly distressed but overall comfortable, very thin and cachectic looking Neck : Normal inspection, Supple Cardiovascular : RRR, S1 S2, no lower extremity edema Respiratory : failure bilateral air entry decreased mainly on the right side with basal crackles noted, no wheezes Gastrointestinal: soft, lax, decreased bowel sounds, no tenderness noted Skin : Warm, Dry Neurological : Alert , nonverbal, No focal deficit can not be assessed Results Labs CBC and Chem 7: 05/17/21 09:40 05/17/21 10:52 Labs: Laboratory Results - last 24 hr 05/17/21 05/17/21 05/17/21 09:40 09:40 09:40 MCV 96.9 MCH 31.6 MCHC 32.6 RDW 15.0 Plt Count 145 L MPV 10.8 Immature Gran % (Auto) 0.4 Neut % (Auto) 79.7 H Lymph % (Auto) 13.5 L [place] % (Auto) 6.2 Eos % (Auto) 0.0 Baso % (Auto) 0.2 Lymph # (Auto) 1.2 [place] # (Auto) 0.6 Eos # (Auto) 0.0 Baso # (Auto) 0.0 Abs Immat Gran (auto) 0.04 H Absolute Neuts (auto) 7.2 Absolute Nucleated RBC 0.000 Nucleated RBC % (auto) 0.0 Hold Purple Top PT 16.5 H INR 1.4 H Anion Gap Estim Creat Clear Calc Estimated GFR Random Glucose Lactic Acid 1.8 Calcium Magnesium Total Bilirubin AST ALT Alkaline Phosphatase Total Protein Albumin COVID-19 (ASTON) COVID-19 Clin Com Influenza Type A (CORIN) Influenza Type B (CORIN) Influenza A & B Note 05/17/21 05/17/21 05/17/21 09:40 09:40 10:52 MCV MCH MCHC RDW Plt Count MPV Immature Gran % (Auto) Neut % (Auto) Lymph % (Auto) [place] % (Auto) Eos % (Auto) Baso % (Auto) Lymph # (Auto) [place] # (Auto) Eos # (Auto) Baso # (Auto) Abs Immat Gran (auto) Absolute Neuts (auto) Absolute Nucleated RBC Nucleated RBC % (auto) Hold Purple Top SEE NOTE PT INR Anion Gap 17 Estim Creat Clear Calc 72.7 Estimated GFR > 60 Random Glucose 124 H Lactic Acid Calcium 9.3 Magnesium 1.8 Total Bilirubin 0.5 AST 41 H ALT 23 Alkaline Phosphatase 63 Total Protein 8.2 H Albumin 3.4 L COVID-19 (ASTON) Negative COVID-19 Clin Com See Note Influenza Type A (CORIN) Influenza Type B (CORIN) Influenza A & B Note 05/17/21 10:53 MCV MCH MCHC RDW Plt Count MPV Immature Gran % (Auto) Neut % (Auto) Lymph % (Auto) [place] % (Auto) Eos % (Auto) Baso % (Auto) Lymph # (Auto) [place] # (Auto) Eos # (Auto) Baso # (Auto) Abs Immat Gran (auto) Absolute Neuts (auto) Absolute Nucleated RBC Nucleated RBC % (auto) Hold Purple Top PT INR Anion Gap Estim Creat Clear Calc Estimated GFR Random Glucose Lactic Acid Calcium Magnesium Total Bilirubin AST ALT Alkaline Phosphatase Total Protein Albumin COVID-19 (ASTON) COVID-19 Clin Com Influenza Type A (CORIN) Negative Influenza Type B (CORIN) Negative Influenza A & B Note See Note Imaging Radiologist's Impressions: Impressions Chest X-Ray 05/17/21 09:58 IMPRESSION: Very elevated left hemidiaphragm. Increased right central lung markings suggestive of bronchial wall thickening and question peribronchial atelectasis or small infiltrate. Head CT 05/17/21 10:12 IMPRESSION: No acute findings. Atrophic changes in the posterior fossa. Abdomen/Pelvis CT 05/17/21 12:40 IMPRESSION: Very dilated fluid-filled esophagus, stomach and duodenum. The jejunum does not appear dilated. Distal duodenal obstruction and severe stasis or ileus should be considered. There is a severe constipation and fecal impaction. Small amount of ascites in the right lower quadrant. Significant mass effect on the bladder from a stool-filled colon. There is question of mild diffuse bladder wall enhancement and tiny amount of air in the right side of the bladder. Fleischner guidelines were followed. Chest CTA 05/17/21 12:40 IMPRESSION: No evidence of pulmonary embolism. Very high left hemidiaphragm. Very dilated fluid-filled esophagus and stomach. Right upper and right lower lobe pneumonia. Possible aspiration should be considered. VTE: negative Assessment and Plan (1) Intellectual disability: Status: Inactive Plan a 65 years old male with PMH of development chin inch, CRS who lives in a assisted presented by the staff for altered mentation, decreased oral intake and lethargy. acute hypoxic respiratory failure 2/2 sepsis 2/2 Aspiration pneumonia CTA of the chest S reported Fever, tachypnea and dropped to 84 on room air Wean down oxygen as tolerated Blood culture sent Start IV antibiotics of Zosyn Fecal impaction 2/2 severe constipation ileus VS SBO disimpacted in the emergency NG tube placed Surgical consult Keep NPO IVF Repeat images tomorrow morning History of seizure To use IV valproic acid Hold rest of his home medications DVT PPX Lovenox the patient will need to be admitted to the hospital for 2 nightsFor treatment of sepsis pending blood cultures and resolution of ileus VS SBO Quality Stroke Does the patient have a stroke diagnosis?: No VTE Prior VTE?: No VTE Risk Level:: Medical - moderate - high VTE Device Contraindication: Treatment Not Indicated VTE Drug Contraindication: N/A - Med Ordered
[2021-05-17] MEDS: Lactated Ringers 1,000 ML 80 ML IVCONT (16:44)
[2021-05-17] MEDS: Valproic Acid (as Sodium Salt) 250 MG in Dextrose 5 % 50 ML 52.5 MG IV ×2 (16:45→22:40)
[2021-05-17] MEDS: 0.9 % Sodium Chloride Flush 3 ML SYRINGE IVFLUSH (23:39)
[2021-05-18] MEDS: Piperacillin Sodium/Tazobactam 3.375 GM in 0.9 % Sodium Chloride 50 ML IV ×4 (02:20→21:20)
[2021-05-18 04:12] VITALS: BP 94/54; PULSE 81; RESP 18; TEMP 37.2; O2SAT 96
--- NOTE | 2021-05-18 04:16 | PC.NURSE ---
REPORT GIVEN TO [place] [id number] RN AND PATIENT TRANSPORTED VIA BED WITH TELE MONITOR IN USE AT 0415. NGT TO LEFT NARE PRESENT AND EMPTIED FOR 150ML BROWN LIQUID AND RECORDED PRIOR TO TRANFER. [place] CATHETER IN PLACE AND EMPTIED FOR 400ML SARAH URINE. PT NONVERBAL AT BASELINE AND TRANSFER PROCEDURE EXPLAINED BEST ABLE. VSS.
[2021-05-18 04:28] VITALS: BP 107/56; PULSE 86; RESP 18; TEMP 36.7; O2SAT 95
[2021-05-18 06:03] LABS: Hematocrit 29.8 % (42.0-52.0); Hemoglobin 9.6 g/dl (14.0-18.0); Mean Corpuscular HGB Conc 32.2 g/dl (31.0-36.0); Mean Corpuscular Hemoglobin 32.4 pg (27.0-33.0); Mean Corpuscular Volume 100.7 fL (80.0-98.0); Mean Platelet Volume 10.6 fL (9.4-12.4); Red Blood Count 2.96 X10*6/uL (4.60-5.80); Red Cell Distribution Width 15.1 % (11.0-16.0); White Blood Count 6.8 X10*3/uL (4.8-10.8)
[2021-05-18] MEDS: Lactated Ringers 1,000 ML 80 ML IVCONT (06:08)
[2021-05-18 06:09] LABS: Platelet Count 95 X10*3/uL (160-400)
[2021-05-18 06:25] LABS: Anion Gap 11 (12-20); Blood Urea Nitrogen 19 mg/dL (9-16); Calcium 8.3 mg/dL (8.4-10.2); Carbon Dioxide 28 mmol/L (22-29); Chloride 107 mmol/L (96-108); Estimated Glomerular Filt Rate > 60; Glucose Random 79 mg/dL (60-115); Potassium 3.4 mmol/L (3.3-5.1); Sodium 143 mmol/L (135-145)
[2021-05-18 07:27] VITALS: BP 101/59; PULSE 79; RESP 18; TEMP 36.4; O2SAT 95
--- NOTE | 2021-05-18 09:22 | P.CONGS_ITS ---
History of Present Illness Consult details Consult date: 05/18/21 Narrative: 65-year-old male patient presenting from [facility] noted to have increased weakness and decreased appetite. He normally eats a pureed diet. Patient is DNR DNI per family request. His family wishes no surgical intervention as well. Workup in the emergency department with CT abdomen and pelvis revealed a m arkedly distended esophagus, stomach, and duodenum with a cutoff at the distal duodenum no obstructing mass is appreciated. Scar tissue is suspected to be the source of obstruction. Patient is also noted to have a markedly distended rectum with a large fecal impaction. He underwent disimpaction in the emergency department. Surgical consultation is requested regarding chronic constipation. Review of Systems Review of Systems: Yes Unobtainable due to mental status PMFSH Past Medical History Medical History Intellectual disability Family History Family History Brother No problems noted. Social History Social History Housing Other:: [facility] Unable to assess alcohol history related to: Unable to respond and Unknown Patient Tobacco Use Status: Never used Tobacco Meds Allergies Allergy/AdvReac Type Severity Reaction Status Date / Time No Known Allergies Allergy Verified 05/17/21 09:21 Active Medications: Current Medications Acetaminophen (Acetaminophen 325 Mg Tablet) 650 mg PO Q6H PRN PRN Reason: Pain, Mild (Pain Scale 1-3) Enoxaparin Sodium (Enoxaparin Sodium 40 Mg/0.4 Ml Syringe) 40 mg SUBCUT Q24H [facility] Lactated Ringer's (Lr) 1,000 mls @ 80 mls/hr IVCONT .[id number] SHARON Last Admin: 05/18/21 06:08 Dose: 80 mls/hr Documented by: Piperacillin Sod/Tazobactam (Sod 3.375 gm/ Sodium Chloride) 50 mls @ 100 mls/hr IV Q6H [facility] Last Infusion: 05/18/21 08:07 Dose: Infused Documented by: Valproic Acid 250 mg/ Dextrose 52.5 mls @ 52.5 mls/hr IV Q6H [facility] Last Admin: 05/18/21 06:04 Dose: Not Given Documented by: Ondansetron HCl (Ondansetron Hcl 4 Mg/2 Ml Vial) 4 mg IVPUSH Q8H PRN PRN Reason: Nausea and Vomiting Pharmacy Consult (Consult Rx Perform Med Rec) 1 each MISCELLANE ONCE PRN PRN Reason: Consult order Sodium Chloride (0.9 % Sodium Chloride Flush 3 Ml Syringe) 3 ml IVFLUSH [facility] Last Admin: 05/18/21 07:43 Dose: Not Given Documented by: Home Medications Medication Instructions Recorded Confirmed Last Taken Type Probiotic 1 cap PO DAILY 05/17/21 05/17/21 05/16/21 History divalproex 500 mg tablet,delayed 1 tab PO BID 05/17/21 05/17/21 05/16/21 History release loratadine 10 mg tablet 10 mg PO DAILY PRN 05/17/21 05/17/21 05/16/21 History multivitamin 1 tab PO DAILY 05/17/21 05/17/21 05/16/21 History omeprazole 40 mg capsule,delayed 1 cap PO DAILY 05/17/21 05/17/21 05/16/21 History release Physical Exam Vital Signs: Vital Signs: Last Vital Signs Temp 97.5 F 05/18/21 07:27 Pulse 79 05/18/21 07:27 Resp 18 05/18/21 07:27 BP 101/59 L 05/18/21 07:27 Pulse Ox 95 05/18/21 07:27 BMI result Body Mass Index 15.8 Const: Other: Eyes opened, grinding teeth, in no apparent distress Resp: Other: breathing comfortably on room air, no shortness of breath GI: Other: nasogastric tube in place. Abdomen soft and nondistended, no apparent tenderness to deep palpation. No tympany to percussion. Skin: Other: Warm, dry, no rash Extrem: Other: no edema Results Labs Result diagrams: 05/18/21 05:16 05/18/21 05:16 Labs: Abnormal lab results 05/17/21 05/17/21 05/17/21 Range/Units 09:40 09:40 10:52 RBC 4.24 L (4.60-5.80) X10*6/uL Hgb 13.4 L (14.0-18.0) g/dl Hct 41.1 L (42.0-52.0) % MCV (80.0-98.0) fL Plt Count 145 L (160-400) X10*3/uL Neut % (Auto) 79.7 H (45-73) % Lymph % (Auto) 13.5 L (20-40) % Abs Immat Gran (auto) 0.04 H (0.00-0.03) X10*3/uL PT 16.5 H (9.9-13.0) SEC INR 1.4 H (0.9-1.1) Anion Gap (12-20) BUN 28 H (9-16) mg/dL Random Glucose 124 H (60-115) mg/dL Calcium (8.4-10.2) mg/dL AST 41 H (5-37) U/L Total Protein 8.2 H (6.5-8.0) g/dL Albumin 3.4 L (3.5-5.0) g/dL 05/18/21 05/18/21 Range/Units 05:16 05:16 RBC 2.96 L D (4.60-5.80) X10*6/uL Hgb 9.6 L D (14.0-18.0) g/dl Hct 29.8 L D (42.0-52.0) % MCV 100.7 H (80.0-98.0) fL Plt Count 95 L D (160-400) X10*3/uL Neut % (Auto) (45-73) % Lymph % (Auto) (20-40) % Abs Immat Gran (auto) (0.00-0.03) X10*3/uL PT (9.9-13.0) SEC INR (0.9-1.1) Anion Gap 11 L (12-20) BUN 19 H (9-16) mg/dL Random Glucose (60-115) mg/dL Calcium 8.3 L D (8.4-10.2) mg/dL AST (5-37) U/L Total Protein (6.5-8.0) g/dL Albumin (3.5-5.0) g/dL Short CBC 05/17/21 05/18/21 Range/Units 09:40 05:16 WBC 9.0 6.8 (4.8-10.8) X10*3/uL Hgb 13.4 L 9.6 L D (14.0-18.0) g/dl Hct 41.1 L 29.8 L D (42.0-52.0) % Plt Count 145 L 95 L D (160-400) X10*3/uL BMP 05/17/21 05/18/21 10:52 05:16 Sodium 144 143 Potassium 4.9 3.4 D Chloride 104 107 Carbon Dioxide 28 28 BUN 28 H 19 H Creatinine 0.80 0.60 Calcium 9.3 8.3 L D Liver Function 05/17/21 Range/Units 10:52 Total Bilirubin 0.5 (0.0-1.0) mg/dL AST 41 H (5-37) U/L ALT 23 (0-40) U/L Alkaline Phosphatase 63 (39-117) U/L Albumin 3.4 L (3.5-5.0) g/dL All other labs normal. Assessment and Plan (1) Fecal impaction: Status: Acute Plan 65-year-old male patient with multiple medical problems, DNR/DNI, no heroic measures, presenting with duodenal obstruction as well as a fecal impaction. Given his overall condition this may have been present for prolonged period. Under normal circumstances options could include partial colectomy, diverting ostomy although this is more than his family wishes. Since he was successfully disimpacted yesterday in the emergency department suggest fleets enema or small volume soapsuds enema only if his bowels do not continue to move. Procedures Date of Service Date of Service: 05/18/21
[2021-05-18] MEDS: Valproic Acid (as Sodium Salt) 250 MG in Dextrose 5 % 50 ML 52.5 MG IV ×2 (09:48→15:51)
[2021-05-18] MEDS: Enoxaparin Sodium 40 MG/0.4 ML SYRINGE SUBCUT (09:48)
--- NOTE | 2021-05-18 13:10 | HO.PM.IMPN ---
Subjective Subjective Date of Service: 05/18/21 Interval History: seen and evaluated this morning Looks fairly comfortable, NG tube in place No bowel movement reported overnight Review of Systems Nonverbal Physical Exam Vital Signs: Vital Signs: Last Vital Signs Temp 97.5 F 05/18/21 07:27 Pulse 79 05/18/21 07:27 Resp 18 05/18/21 07:27 BP 101/59 L 05/18/21 07:27 Pulse Ox 95 05/18/21 07:27 BMI result Body Mass Index 15.8 Const: Other: Constitutional : Alert, less distressed but overall comfortable, very thin and cachectic looking Neck : Normal inspection, Supple, NG tube in place Cardiovascular : RRR, S1 S2, no lower extremity edema Respiratory : failure bilateral air entry decreased mainly on the right side with basal crackles noted, no wheezes Gastrointestinal: soft, lax, decreased bowel sounds, no tenderness noted Skin : Warm, Dry Neurological : Alert , nonverbal, No focal deficit can not be assessed Objective Data Active Medications Acetaminophen (Acetaminophen 325 Mg Tablet) 650 mg PO Q6H PRN PRN Reason: Pain, Mild (Pain Scale 1-3) Enoxaparin Sodium (Enoxaparin Sodium 40 Mg/0.4 Ml Syringe) 40 mg SUBCUT Q24H [facility] Last Admin: 05/18/21 09:48 Dose: 40 mg Documented by: UNIQUE Lactated Ringer's (Lr) 1,000 mls @ 80 mls/hr IVCONT .[id number] [facility] Last Admin: 05/18/21 06:08 Dose: 80 mls/hr Documented by: EVAN Piperacillin Sod/Tazobactam (Sod 3.375 gm/ Sodium Chloride) 50 mls @ 100 mls/hr IV Q6H [facility] Last Infusion: 05/18/21 08:07 Dose: 0 mls/hr Documented by: UNIQUE Valproic Acid 250 mg/ Dextrose 52.5 mls @ 52.5 mls/hr IV Q6H [facility] Last Infusion: 05/18/21 11:40 Dose: 0 mls/hr Documented by: UNIQUE Ondansetron HCl (Ondansetron Hcl 4 Mg/2 Ml Vial) 4 mg IVPUSH Q8H PRN PRN Reason: Nausea and Vomiting Pharmacy Consult (Consult Rx Perform Med Rec) 1 each MISCELLANE ONCE PRN PRN Reason: Consult order Sodium Chloride (0.9 % Sodium Chloride Flush 3 Ml Syringe) 3 ml IVFLUSH QSHIFT [facility] Last Admin: 05/18/21 07:43 Dose: Not Given Documented by: UNIQUE Non-Admin Reason: IV Running Labs CBC & Chem 7: 05/18/21 05:16 05/18/21 05:16 Labs: Laboratory Results - last 24 hr 05/18/21 05/18/21 05:16 05:16 MCV 100.7 H MCH 32.4 MCHC 32.2 RDW 15.1 Plt Count 95 L D MPV 10.6 Absolute Nucleated RBC 0.000 Nucleated RBC % (auto) 0.0 Anion Gap 11 L Estim Creat Clear Calc 97.0 Estimated GFR > 60 Random Glucose 79 D Calcium 8.3 L D Microbiology Microbiology Results: Microbiology 05/17/21 11:04 Blood Culture - Preliminary Blood - Venous No growth after 24 hours. 05/17/21 09:40 Blood Culture - Preliminary Blood - Venous No growth after 24 hours. Assessment and Plan (1) Acute respiratory failure with hypoxia: Status: Acute (2) Pneumonia: Status: Acute (3) Fecal impaction: Status: Acute Plan a 65 years old male with PMH of development chin inch, CRS [facility] presented by the staff for altered mentation, decreased oral intake and lethargy. acute hypoxic respiratory failure 2/2 sepsis 2/2 Aspiration pneumonia CTA of the chest as reported on 2 L of O2 Wean down oxygen as tolerated Blood culture pending continue IV antibiotics of Zosyn Fecal impaction 2/2 severe constipation ileus VS SBO disimpacted in the emergency NG tube placed Surgical input appreciated, ideally would need colectomy but will focus more in symptomatic measures Keep NPO IVF repeat images as needed To use enema History of seizure To use IV valproic acid Hold rest of his home medications DVT PPX Lovenox need of hospital stay: the patient will need to continue treatment of sepsis pending blood cultures and resolution of ileus VS SBO. Quality Stroke Does the patient have a stroke diagnosis?: No VTE Prior VTE?: No VTE Risk Level:: Medical - moderate - high VTE Device Contraindication: Treatment Not Indicated VTE Drug Contraindication: N/A - Med Ordered
--- NOTE | 2021-05-18 14:54 | MHC.CM.PN ---
IMM 05/18/21, EMR REVIEWED, PT ADMITTED W/AMS, PT'S GUARDIAN/BROTHER MONO FIELDS [phone] CONTACTED & IMM REVIEWED AND EMAILED TO [email or web address], MONO AWARE PT WILL BE HERE THROUGH W/E. CM MET W/PT WHO IS ORIENTED TO SELF ONLY AND WILL RESPOND BUT IS NONVERBAL, PER SOFYA CONTACT PT IS FULLY DEPENDENT W/CARE AND NEEDS A GERI LIFT FOR TRANSFERS, SOFYA REPORTS PT'S PCP IS FROM [facility] HOWEVER DOES NOT RECALL NAME AND IS NOT IN OFFICE/ TODAY, SOFYA WILL BE IN OFFICE ON THURSDAY AND WILL FAX [employer] PAPERWORK TO FAX, SOFYA REPORTS SHE ALREADY HAS NUMBER IN HER PHONE. COVID VACCINE X3, BOOSTER AND FLU SHOT GIVEN 03/19/21 D/C PLAN: HOME VS ?STR IF NEEDING SURGICAL INTERVENTION, PT WILL NEED BLS TRANSPORT HOME/STR
[2021-05-18] MEDS: Sodium Phosphate,Mono-Dibasic 133 ML ENEMA PR (15:46)
[2021-05-18 15:49] VITALS: BP 106/59; PULSE 74; RESP 17; TEMP 36.9; O2SAT 97
[2021-05-18 20:00] VITALS: BP 135/75; PULSE 70; RESP 18; TEMP 37; O2SAT 99
[2021-05-18] MEDS: 0.9 % Sodium Chloride Flush 3 ML SYRINGE IVFLUSH (21:21)
[2021-05-18 23:53] VITALS: BP 119/69; PULSE 74; RESP 14; TEMP 36.6; O2SAT 98
[2021-05-19] MEDS: Piperacillin Sodium/Tazobactam 3.375 GM in 0.9 % Sodium Chloride 50 ML IV ×4 (03:41→20:34)
[2021-05-19 04:00] VITALS: BP 107/58; PULSE 75; RESP 18; TEMP 36.3; O2SAT 96
[2021-05-19] MEDS: Lactated Ringers 1,000 ML 80 ML IVCONT (06:13)
[2021-05-19 06:48] LABS: Hematocrit 31.7 % (42.0-52.0); Hemoglobin 10.1 g/dl (14.0-18.0); Mean Corpuscular HGB Conc 31.9 g/dl (31.0-36.0); Mean Corpuscular Hemoglobin 32.2 pg (27.0-33.0); Mean Platelet Volume 10.7 fL (9.4-12.4); Red Blood Count 3.14 X10*6/uL (4.60-5.80); Red Cell Distribution Width 14.6 % (11.0-16.0); White Blood Count 8.1 X10*3/uL (4.8-10.8)
[2021-05-19 06:50] LABS: Anion Gap 15 (12-20); Blood Urea Nitrogen 18 mg/dL (9-16); Calcium 8.5 mg/dL (8.4-10.2); Carbon Dioxide 27 mmol/L (22-29); Chloride 107 mmol/L (96-108); Creatinine Clr Calc Pharmacy 103.9; Estimated Glomerular Filt Rate > 60; Glucose Random 62 mg/dL (60-115); Potassium 3.2 mmol/L (3.3-5.1); Sodium 146 mmol/L (135-145)
[2021-05-19 07:00] LABS: Platelet Count 89 X10*3/uL (160-400)
[2021-05-19 07:34] VITALS: BP 105/65; PULSE 65; RESP 15; TEMP 36.2; O2SAT 99
[2021-05-19] MEDS: 0.9 % Sodium Chloride Flush 3 ML SYRINGE IVFLUSH ×2 (07:56→16:31)
[2021-05-19] MEDS: Dextrose 5 % 1,000 ML 80 ML IVCONT ×2 (07:56→21:10)
--- NOTE | 2021-05-19 09:14 | P.PNGS_ITS ---
Subjective Subjective Date of Service: 05/19/21 Interval history: Patient reported to have several soft BMs over last 24 hours. Physical Exam Vital Signs: Vital Signs: Last Vital Signs Temp 97.2 F 05/19/21 07:34 Pulse 65 05/19/21 07:34 Resp 15 05/19/21 07:34 BP 105/65 05/19/21 07:34 Pulse Ox 99 05/19/21 07:34 BMI result Body Mass Index 15.8 Const: General: awake Nutritional Appearance: thin Limitations: physical limitations Resp: Effort & Inspection: normal respiratory effort GI: Inspection: Yes normal to inspection Palpation (GI): Soft to palpation, nontender, no guarding, not rigid and no masses Objective Data Active Medications Acetaminophen (Acetaminophen 325 Mg Tablet) 650 mg PO Q6H PRN PRN Reason: Pain, Mild (Pain Scale 1-3) Enoxaparin Sodium (Enoxaparin Sodium 40 Mg/0.4 Ml Syringe) 40 mg SUBCUT Q24H [facility] Last Admin: 05/18/21 09:48 Dose: 40 mg Documented by: UNIQUE Piperacillin Sod/Tazobactam (Sod 3.375 gm/ Sodium Chloride) 50 mls @ 100 mls/hr IV Q6H [facility] Last Infusion: 05/19/21 08:44 Dose: 0 mls/hr Documented by: UNIQUE Valproic Acid 250 mg/ Dextrose 52.5 mls @ 52.5 mls/hr IV Q6H [facility] Last Admin: 05/19/21 04:42 Dose: Not Given Documented by: EVAN Non-Admin Reason: Med Not Available Dextrose (D5w) 1,000 mls @ 80 mls/hr IVCONT .[id number] [facility] Last Admin: 05/19/21 07:56 Dose: 80 mls/hr Documented by: UNIQUE Ondansetron HCl (Ondansetron Hcl 4 Mg/2 Ml Vial) 4 mg IVPUSH Q8H PRN PRN Reason: Nausea and Vomiting Pharmacy Consult (Consult Rx Perform Med Rec) 1 each MISCELLANE ONCE PRN PRN Reason: Consult order Sodium Chloride (0.9 % Sodium Chloride Flush 3 Ml Syringe) 3 ml IVFLUSH QSHIFT [facility] Last Admin: 05/19/21 07:56 Dose: 3 ml Documented by: UNIQUE Labs CBC & Chem 7: 05/19/21 06:19 05/19/21 06:19 Labs: Laboratory Results - last 24 hr 05/19/21 05/19/21 06:19 06:19 MCV 101.0 H MCH 32.2 MCHC 31.9 RDW 14.6 Plt Count 89 L MPV 10.7 Absolute Nucleated RBC 0.000 Nucleated RBC % (auto) 0.0 Anion Gap 15 Estim Creat Clear Calc 103.9 Estimated GFR > 60 Random Glucose 62 Calcium 8.5 Microbiology Microbiology Results: Microbiology 05/17/21 11:04 Blood Culture - Preliminary Blood - Venous No growth after 24 hours. 05/17/21 09:40 Blood Culture - Preliminary Blood - Venous No growth after 24 hours. Procedures Date of Service Date of Service: 05/19/21 Progress Note: A&P Assessment and plan (1) Fecal impaction: Status: Acute Assessment and Plan: Fecal impaction appears improved. Patient in no acute distress He is DNR/DNR, admitted for comfort with NGT decompression. Family requests no surgical intervention Will sign off; reconsult for any new concerns. Fall Risk Details Current Medications: Current Medications Acetaminophen (Acetaminophen 325 Mg Tablet) 650 mg PO Q6H PRN PRN Reason: Pain, Mild (Pain Scale 1-3) Enoxaparin Sodium (Enoxaparin Sodium 40 Mg/0.4 Ml Syringe) 40 mg SUBCUT Q24H [facility] Last Admin: 05/18/21 09:48 Dose: 40 mg Documented by: Piperacillin Sod/Tazobactam (Sod 3.375 gm/ Sodium Chloride) 50 mls @ 100 mls/hr IV Q6H [facility] Last Infusion: 05/19/21 08:44 Dose: Infused Documented by: Valproic Acid 250 mg/ Dextrose 52.5 mls @ 52.5 mls/hr IV Q6H [facility] Last Admin: 05/19/21 04:42 Dose: Not Given Documented by: Dextrose (D5w) 1,000 mls @ 80 mls/hr IVCONT .[id number] [facility] Last Admin: 05/19/21 07:56 Dose: 80 mls/hr Documented by: Ondansetron HCl (Ondansetron Hcl 4 Mg/2 Ml Vial) 4 mg IVPUSH Q8H PRN PRN Reason: Nausea and Vomiting Pharmacy Consult (Consult Rx Perform Med Rec) 1 each MISCELLANE ONCE PRN PRN Reason: Consult order Sodium Chloride (0.9 % Sodium Chloride Flush 3 Ml Syringe) 3 ml IVFLUSH QSHIFT [facility] Last Admin: 05/19/21 07:56 Dose: 3 ml Documented by: Time Spent With Patient Time: Total time spent is greater than 50% in coordination of care (as documented) at patient's floor/unit and/or counseling patient: Time with patient: 15 - 24 minutes Quality Stroke Does the patient have a stroke diagnosis?: No VTE Prior VTE?: No VTE Risk Level:: Medical - moderate - high VTE Device Contraindication: Treatment Not Indicated VTE Drug Contraindication: N/A - Med Ordered
[2021-05-19] MEDS: Enoxaparin Sodium 40 MG/0.4 ML SYRINGE SUBCUT (09:48)
[2021-05-19] MEDS: Valproic Acid (as Sodium Salt) 250 MG in Dextrose 5 % 50 ML 52.5 MG IV ×3 (09:49→21:39)
--- NOTE | 2021-05-19 10:48 | HO.PM.IMPN ---
Subjective Subjective Date of Service: 05/19/21 Interval History: seen and evaluated this morning Looks fairly comfortable, NG tube in place had 2 bowel movement since overnight Review of Systems Nonverbal Physical Exam Vital Signs: Vital Signs: Last Vital Signs Temp 97.2 F 05/19/21 07:34 Pulse 65 05/19/21 07:34 Resp 15 05/19/21 07:34 BP 105/65 05/19/21 07:34 Pulse Ox 99 05/19/21 07:34 BMI result Body Mass Index 15.8 Const: Other: Constitutional : Alert, looks overall comfortable, very thin and cachectic looking Neck : Normal inspection, Supple, NG tube in place with suction on and bilirubin tinged fluid collected Cardiovascular : RRR, S1 S2, no lower extremity edema Respiratory : failure bilateral air entry decreased mainly on the right side with basal crackles noted, no wheezes Gastrointestinal: soft, lax, decreased bowel sounds, no tenderness noted Skin : Warm, Dry Neurological : Alert , nonverbal, very contracted,No focal deficit can not be assessed Objective Data Active Medications Acetaminophen (Acetaminophen 325 Mg Tablet) 650 mg PO Q6H PRN PRN Reason: Pain, Mild (Pain Scale 1-3) Enoxaparin Sodium (Enoxaparin Sodium 40 Mg/0.4 Ml Syringe) 40 mg SUBCUT Q24H [facility] Last Admin: 05/19/21 09:48 Dose: 40 mg Documented by: UNIQUE Piperacillin Sod/Tazobactam (Sod 3.375 gm/ Sodium Chloride) 50 mls @ 100 mls/hr IV Q6H [facility] Last Infusion: 05/19/21 08:44 Dose: 0 mls/hr Documented by: UNIQUE Valproic Acid 250 mg/ Dextrose 52.5 mls @ 52.5 mls/hr IV Q6H [facility] Last Admin: 05/19/21 09:49 Dose: 52.5 mls/hr Documented by: UNIQUE Dextrose (D5w) 1,000 mls @ 80 mls/hr IVCONT .[id number] [facility] Last Admin: 05/19/21 07:56 Dose: 80 mls/hr Documented by: UNIQUE Ondansetron HCl (Ondansetron Hcl 4 Mg/2 Ml Vial) 4 mg IVPUSH Q8H PRN PRN Reason: Nausea and Vomiting Pharmacy Consult (Consult Rx Perform Med Rec) 1 each MISCELLANE ONCE PRN PRN Reason: Consult order Sodium Chloride (0.9 % Sodium Chloride Flush 3 Ml Syringe) 3 ml IVFLUSH QSHIFT [facility] Last Admin: 05/19/21 07:56 Dose: 3 ml Documented by: UNIQUE Labs CBC & Chem 7: 05/19/21 06:19 05/19/21 06:19 Labs: Laboratory Results - last 24 hr 05/19/21 05/19/21 06:19 06:19 MCV 101.0 H MCH 32.2 MCHC 31.9 RDW 14.6 Plt Count 89 L MPV 10.7 Absolute Nucleated RBC 0.000 Nucleated RBC % (auto) 0.0 Anion Gap 15 Estim Creat Clear Calc 103.9 Estimated GFR > 60 Random Glucose 62 Calcium 8.5 Microbiology Microbiology Results: Microbiology 05/17/21 11:04 Blood Culture - Preliminary Blood - Venous No growth after 24 hours. 05/17/21 09:40 Blood Culture - Preliminary Blood - Venous No growth after 24 hours. Assessment and Plan (1) Acute respiratory failure with hypoxia: Status: Acute (2) Pneumonia: Status: Acute (3) Fecal impaction: Status: Acute (4) SBO (small bowel obstruction): Status: Acute Plan a 65 years old male with PMH of development chin inch, CRS who lives in a halfway presented by the staff for altered mentation, decreased oral intake and lethargy. acute hypoxic respiratory failure 2/2 sepsis 2/2 Aspiration pneumonia CTA of the chest as reported on room air today Blood culture negative continue IV antibiotics of Zosyn Fecal impaction 2/2 severe constipation ileus VS SBO disimpacted in the emergency blood large burden of stool reported NG tube placed and suctioning moderate amount of gastric fluids Surgical input appreciated, ideally would need colectomy but will focus more in symptomatic measures Keep NPO IVF repeat images as needed to decide when to remove the NG tube To use enema on daily basis History of seizure To use IV valproic acid Hold rest of his home medications DVT PPX Lovenox need of hospital stay: the patient will need to continue treatment of sepsis pending blood cultures and resolution of ileus VS SBO. Quality Stroke Does the patient have a stroke diagnosis?: No VTE Prior VTE?: No VTE Risk Level:: Medical - moderate - high VTE Device Contraindication: Treatment Not Indicated VTE Drug Contraindication: N/A - Med Ordered
[2021-05-19 11:53] VITALS: BP 154/60; PULSE 64; RESP 17; TEMP 36.4; O2SAT 100
[2021-05-19 16:00] VITALS: BP 132/68; PULSE 59; RESP 18; TEMP 37; O2SAT 95
--- NOTE | 2021-05-19 18:00 | PM.EVENT ---
Event Note Date of Service: 05/19/21 Event Note: Called by nurse who states patient's NG tube came out. Is incontinent of stool without abdominal distension. Will hold off on NG tube at this time and follow clinically. If becomes symptomatic can reinsert. Reassess in a.m.
--- NOTE | 2021-05-19 18:04 | PC.NURSE ---
P patient pulled out NG tube BRADLEYrCorrina Thomas notified E will keep NG out and monitor ,incontinent of BM x 1 sinc 3 pm today
[2021-05-19 19:29] VITALS: BP 129/61; RESP 18; TEMP 37; O2SAT 95
[2021-05-19 19:48] LABS: Anion Gap 14 (12-20); Blood Urea Nitrogen 19 mg/dL (9-16); Calcium 8.6 mg/dL (8.4-10.2); Carbon Dioxide 30 mmol/L (22-29); Chloride 105 mmol/L (96-108); Creatinine Clr Calc Pharmacy 102.1; Estimated Glomerular Filt Rate > 60; Glucose Random 85 mg/dL (60-115); Potassium 3.3 mmol/L (3.3-5.1); Sodium 146 mmol/L (135-145)
[2021-05-19 23:44] VITALS: BP 99/52; PULSE 56; RESP 16; TEMP 36.3; O2SAT 95
[2021-05-20] MEDS: Piperacillin Sodium/Tazobactam 3.375 GM in 0.9 % Sodium Chloride 50 ML IV ×2 (01:46→07:34)
[2021-05-20] MEDS: Valproic Acid (as Sodium Salt) 250 MG in Dextrose 5 % 50 ML 52.5 MG IV ×4 (03:57→21:22)
[2021-05-20 04:00] VITALS: BP 104/62; PULSE 59; RESP 16; TEMP 36.3; O2SAT 98
[2021-05-20 04:48] LABS: PLT CLUMP 1; Red Cell Distribution Width 14.2 % (11.0-16.0)
[2021-05-20 04:50] LABS: Hemoglobin 9.4 g/dl (14.0-18.0); Mean Corpuscular HGB Conc 31.3 g/dl (31.0-36.0); Mean Corpuscular Hemoglobin 31.2 pg (27.0-33.0); Mean Corpuscular Volume 99.7 fL (80.0-98.0); Mean Platelet Volume 10.4 fL (9.4-12.4); Red Blood Count 3.01 X10*6/uL (4.60-5.80)
[2021-05-20 04:55] LABS: Platelet Count 105 X10*3/uL (160-400); White Blood Count 7.8 X10*3/uL (4.8-10.8)
[2021-05-20 05:02] LABS: Anion Gap 11 (12-20); Blood Urea Nitrogen 18 mg/dL (9-16); Calcium 8.4 mg/dL (8.4-10.2); Carbon Dioxide 32 mmol/L (22-29); Chloride 105 mmol/L (96-108); Creatinine Clr Calc Pharmacy 102.1; Estimated Glomerular Filt Rate > 60; Glucose Random 83 mg/dL (60-115); Sodium 145 mmol/L (135-145)
[2021-05-20 07:25] VITALS: BP 95/53; PULSE 57; RESP 16; TEMP 36.4; O2SAT 98
--- NOTE | 2021-05-20 08:29 | P.CDIC_ITS ---
CDI Concurrent Query Documentation Clarification: PHYSICIAN'S DOCUMENTATION REQUEST Date of Query: 05/20/21 0829 Patient Name: Juan Alberto Doran Admit Date: 05/17/21 Dear Doctor, A review of the medical record indicates additional documentation may be needed. Please review below and update the documentation accordingly. Clinical Indicators: Risk Factors/Clinical Indicators/Treatments Patient is nonverbal, needs two person assistance, thin, cachectic, weakness and lethargic, uses Ken lift at [place]. BMI 15 Which, if any, of the following is a likely etiology of the above abnormalities and treatment rendered: * Functional quadriplegia (complete immobility due to severe physical disability or [id number]-[id number] caus Other etiology * Age related weakness or frailty * Generalized weakness * Unable to determine Use of terms such as suspected, likely, concern for, or probable (associated with a specific diagnosis that is being evaluated, monitored, or treated as if it exists) are acceptable and can be coded in the inpatient setting, when documented at the time of discharge. Thank you, Irene Mccormick [facility], CDIS Extension [phone] Please use your independent medical judgment in providing your response. 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
[2021-05-20] MEDS: Enoxaparin Sodium 40 MG/0.4 ML SYRINGE SUBCUT (09:38)
[2021-05-20] MEDS: Potassium Chloride/H20 10 MEQ/100 ML PIGGYBACK 100 MEQ IV ×4 (09:39→16:19)
--- NOTE | 2021-05-20 11:09 | P.CDIC_ITS ---
CDI Concurrent Query Documentation Clarification: PHYSICIAN'S DOCUMENTATION REQUEST Date of Query: 05/20/21 1109 Patient Name: Juan Alberto Doran Admit Date: 05/17/21 Dear Doctor, A review of the medical record indicates additional documentation may be needed. Please review below and update the documentation accordingly. Clinical Indicators: Risk Factors/Clinical Indicators/Treatments BMI 15.8 6' in height Altered mental status, decreased oral intake, very thin. If possible, please provide an associated diagnosis related to the abnormal BMI, such as: For a BMI <= 19: * Underweight * Weight loss * Cachexia * Anorexia * Malnutrition, mild, moderate or severe Or: * BMI is not significant * Other (please specify) * Unable to determine Use of terms such as suspected, likely, concern for, or probable (associated with a specific diagnosis that is being evaluated, monitored, or treated as if it exists) are acceptable and can be coded in the inpatient setting, when documented at the time of discharge. Thank you, Irene Mccormick [facility], CDIS Extension: [phone] Please use your independent medical judgment in providing your response. THIS QUERY IS PART OF THE PERMANENT MEDICAL RECORD Provider Response: Other Other Diagnosis: Cachexia
[2021-05-20 11:52] VITALS: BP 119/66; PULSE 84; RESP 16; TEMP 36.4; O2SAT 97
--- NOTE | 2021-05-20 14:02 | P.PNIM_ITS ---
Subjective Subjective Date of Service: 05/20/21 Interval History: seen and evaluated this morning Looks fairly comfortable, removed NG tube overnight had 2 bowel movement since overnight no reported events Review of Systems Nonverbal Physical Exam Vital Signs: Vital Signs: Last Vital Signs Temp 97.6 F 05/20/21 11:52 Pulse 84 05/20/21 11:52 Resp 16 05/20/21 11:52 BP 119/66 05/20/21 11:52 Pulse Ox 97 05/20/21 11:52 BMI result Body Mass Index 15.8 Const: Other: Constitutional : Alert, looks overall comfortable, very thin and cachectic looking Neck : Normal inspection, Supple Cardiovascular : RRR, S1 S2, no lower extremity edema Respiratory : failure bilateral air entry decreased mainly on the right side with basal crackles noted, no wheezes Gastrointestinal: soft, lax, decreased bowel sounds, no tenderness noted Skin : Warm, Dry Neurological : Alert , nonverbal, very contracted,No focal deficit can not be assessed Objective Data Active Medications Acetaminophen (Acetaminophen 325 Mg Tablet) 650 mg PO Q6H PRN PRN Reason: Pain, Mild (Pain Scale 1-3) Amoxicillin/Clavulanate Potassium (Amoxicillin/Potassium Clav 2,000 Mg/50 Ml Bottle) 500 mg PO BID [facility] Enoxaparin Sodium (Enoxaparin Sodium 40 Mg/0.4 Ml Syringe) 40 mg SUBCUT Q24H [facility] Last Admin: 05/20/21 09:38 Dose: 40 mg Documented by: UNIQUE Valproic Acid 250 mg/ Dextrose 52.5 mls @ 52.5 mls/hr IV Q6H [facility] Last Infusion: 05/20/21 12:54 Dose: 0 mls/hr Documented by: UNIQUE Dextrose (D5w) 1,000 mls @ 125 mls/hr IVCONT .Q8H [facility] Last Infusion: 05/20/21 11:34 Dose: 0 mls/hr Documented by: UNIQUE Ondansetron HCl (Ondansetron Hcl 4 Mg/2 Ml Vial) 4 mg IVPUSH Q8H PRN PRN Reason: Nausea and Vomiting Pharmacy Consult (Consult Rx Perform Med Rec) 1 each MISCELLANE ONCE PRN PRN Reason: Consult order Sodium Chloride (0.9 % Sodium Chloride Flush 3 Ml Syringe) 3 ml IVFLUSH QSHIFT [facility] Last Admin: 05/20/21 09:36 Dose: Not Given Documented by: UNIQUE Non-Admin Reason: IV Running Labs CBC & Chem 7: 05/20/21 04:23 05/20/21 04:23 Labs: Laboratory Results - last 24 hr 05/19/21 05/20/21 05/20/21 19:17 04:23 04:23 MCV 99.7 H MCH 31.2 MCHC 31.3 RDW 14.2 Plt Count 105 L MPV 10.4 Absolute Nucleated RBC 0.000 Nucleated RBC % (auto) 0.0 Anion Gap 14 11 L Estim Creat Clear Calc 102.1 102.1 Estimated GFR > 60 > 60 Random Glucose 85 D 83 Calcium 8.6 8.4 Microbiology Microbiology Results: Microbiology 05/17/21 11:04 Blood Culture - Preliminary Blood - Venous No growth after 48 hours. 05/17/21 09:40 Blood Culture - Preliminary Blood - Venous No growth after 48 hours. Assessment and Plan (1) SBO (small bowel obstruction): Status: Acute (2) Pneumonia: Status: Acute (3) Fecal impaction: Status: Acute (4) Constipation: Status: Acute Plan a 65 years old male with PMH of development chin inch, CRS who lives in a alf presented by the staff for altered mentation, decreased oral intake and lethargy. acute hypoxic respiratory failure 2/2 sepsis 2/2 Aspiration pneumonia CTA of the chest as reported on room air today Blood culture negative discontinue IV antibiotics of Zosyn start p.o. 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 intake History of seizure Continue IV valproic acid Hold rest of his home medications until he tolerates diet DVT PPX Lovenox need of hospital stay: the patient will need to continue t management of of ileus VS SBO pending the patient tolerate diet and restart his home medications. Quality Stroke Does the patient have a stroke diagnosis?: No VTE Prior VTE?: No VTE Risk Level:: Medical - moderate - high VTE Device Contraindication: Treatment Not Indicated VTE Drug Contraindication: N/A - Med Ordered
[2021-05-20] MEDS: Lactulose 20 GM/30 ML SOLUTION PO ×2 (14:17→21:22)
[2021-05-20 15:06] LABS: Anion Gap 12 (12-20); Blood Urea Nitrogen 16 mg/dL (9-16); Calcium 8.3 mg/dL (8.4-10.2); Creatinine Clr Calc Pharmacy 100.3; Estimated Glomerular Filt Rate > 60; Glucose Random 107 mg/dL (60-115)
[2021-05-20 15:28] VITALS: BP 107/79; PULSE 78; RESP 20; TEMP 36.2; O2SAT 98
[2021-05-20 15:39] LABS: Carbon Dioxide 28 mmol/L (22-29); Chloride 104 mmol/L (96-108); Potassium 4.1 mmol/L (3.3-5.1); Sodium 142 mmol/L (135-145)
[2021-05-20 15:53] VITALS: BMI 15.8
--- NOTE | 2021-05-20 16:07 | MHC.CLN ---
NUTRITION DIET=REGULAR, PUREE CONSISTENCY. ADDING ENSURE TID TO PROVIDE ADDITIONAL 1050 KCAL, 60 G PROTEIN. PATIENT IS QUADRIPLEGIC, BEDFAST, NON VERBAL. ENCOURAGE INTAKE AT MEALS AND SUPPLEMENTS. NUTRITION DX SEVERE MALNUTRITION IN THE CONTEXT OF CHRONIC ILLNESS.
[2021-05-20 19:26] VITALS: BP 111/62; PULSE 65; RESP 16; TEMP 36.7; O2SAT 93
[2021-05-20 23:37] VITALS: BP 91/53; PULSE 58; RESP 14; TEMP 35.9; O2SAT 96
[2021-05-21] MEDS: Valproic Acid (as Sodium Salt) 250 MG in Dextrose 5 % 50 ML 52.5 MG IV (03:48)
[2021-05-21 03:52] VITALS: BP 98/53; PULSE 57; RESP 14; TEMP 36.1; O2SAT 95
[2021-05-21 06:07] LABS: Anion Gap 11 (12-20); Blood Urea Nitrogen 12 mg/dL (9-16); Calcium 7.9 mg/dL (8.4-10.2); Carbon Dioxide 31 mmol/L (22-29); Chloride 101 mmol/L (96-108); Creatinine Clr Calc Pharmacy 114.1; Estimated Glomerular Filt Rate > 60; Glucose Random 106 mg/dL (60-115); Potassium 3.5 mmol/L (3.3-5.1); Sodium 139 mmol/L (135-145)
[2021-05-21] MEDS: Dextrose 5 % 1,000 ML 80 ML IVCONT (06:33)
[2021-05-21 07:11] VITALS: BP 93/48; PULSE 74; RESP 18; TEMP 36.1; O2SAT 93
[2021-05-21] MEDS: Lactulose 20 GM/30 ML SOLUTION PO (09:53)
[2021-05-21] MEDS: Divalproex Sodium 500 MG TABLET.DR PO ×2 (09:54→21:29)
[2021-05-21] MEDS: Enoxaparin Sodium 40 MG/0.4 ML SYRINGE SUBCUT (09:54)
[2021-05-21] MEDS: Omeprazole 40 MG CAPSULE.DR PO (09:54)
--- NOTE | 2021-05-21 10:34 | P.PNIM_ITS ---
Subjective Subjective Date of Service: 05/21/21 Interval History: seen and evaluated this morning Looks fairly comfortable, tolerating p.o. had 1 bowel movement yesterday no reported events Review of Systems Nonverbal Physical Exam Vital Signs: Vital Signs: Last Vital Signs Temp 97 F 05/21/21 07:11 Pulse 74 05/21/21 07:11 Resp 18 05/21/21 07:11 BP 93/48 L 05/21/21 07:11 Pulse Ox 93 05/21/21 07:11 BMI result Body Mass Index 15.8 Const: Other: Constitutional : Alert, looks overall comfortable, very thin and cachectic looking Neck : Normal inspection, Supple Cardiovascular : RRR, S1 S2, no lower extremity edema Respiratory : failure bilateral air entry decreased mainly on the right side with basal crackles noted, no wheezes Gastrointestinal: soft, lax, decreased bowel sounds, no tenderness noted Skin : Warm, Dry Neurological : Alert , nonverbal, very contracted,No focal deficit can not be assessed Objective Data Active Medications Acetaminophen (Acetaminophen 325 Mg Tablet) 650 mg PO Q6H PRN PRN Reason: Pain, Mild (Pain Scale 1-3) Amoxicillin/Clavulanate Potassium (Amoxicillin/Potassium Clav 2,000 Mg/50 Ml Bottle) 500 mg PO BID [facility] Last Admin: 05/21/21 09:53 Dose: 500 mg Documented by: KAYCEE Divalproex Sodium (Divalproex Sodium 500 Mg Tablet.) 500 mg PO BID [facility] Last Admin: 05/21/21 09:54 Dose: 500 mg Documented by: KAYCEE Enoxaparin Sodium (Enoxaparin Sodium 40 Mg/0.4 Ml Syringe) 40 mg SUBCUT Q24H [facility] Last Admin: 05/21/21 09:54 Dose: 40 mg Documented by: KAYCEE Lactulose (Lactulose 20 Gm/30 Ml Solution) 20 gm PO BID [facility] Last Admin: 05/21/21 09:53 Dose: 20 gm Documented by: KAYCEE Omeprazole (Omeprazole 40 Mg Capsule.) 40 mg PO DAILY@0630 [facility] Last Admin: 05/21/21 09:54 Dose: 40 mg Documented by: KAYCEE Ondansetron HCl (Ondansetron Hcl 4 Mg/2 Ml Vial) 4 mg IVPUSH Q8H PRN PRN Reason: Nausea and Vomiting Pharmacy Consult (Consult Rx Perform Med Rec) 1 each MISCELLANE ONCE PRN PRN Reason: Consult order Sodium Chloride (0.9 % Sodium Chloride Flush 3 Ml Syringe) 3 ml IVFLUSH QSHIFT [facility] Last Admin: 05/21/21 09:54 Dose: Not Given Documented by: KAYCEE Non-Admin Reason: IV Running Labs CBC & Chem 7: 05/20/21 04:23 05/21/21 05:41 Labs: Laboratory Results - last 24 hr 05/20/21 05/21/21 14:26 05:41 Anion Gap 12 11 L Estim Creat Clear Calc 100.3 114.1 Estimated GFR > 60 > 60 Random Glucose 107 106 Calcium 8.3 L 7.9 L Assessment and Plan (1) Constipation: Status: Acute (2) Acute respiratory failure with hypoxia: Status: Acute (3) Pneumonia: Status: Acute (4) Fecal impaction: Status: Acute Plan a 65 years old male with PMH of development chin inch, CRS who lives in a residential presented by the staff for altered mentation, decreased oral intake and lethargy. acute hypoxic respiratory failure 2/2 sepsis 2/2 Aspiration pneumonia CTA of the chest as reported on 2 L of oxygen, to wean down as tolerated Blood culture negative discontinue IV antibiotics of Zosyn start p.o. Augmentin Fecal impaction 2/2 severe constipation ileus VS SBO disimpacted in the emergency blood large burden of stool reported NG tube placed and suctioning moderate amount of gastric fluids, patient removed NG tube Surgical input appreciated, ideally would need colectomy but in his condition consider WEBSPHERE PORTAL ARCHITECT if no improvement modified diet discontinue IVF decrease lactulose to 20 mg daily restart his home medication p.o. 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 intake History of seizure Continue IV valproic acid Hold rest of his home medications until he tolerates diet DVT PPX Lovenox need of hospital stay: the patient will need to continue t management of of ileus VS SBO pending the patient tolerate diet, p.o. pills and restart his home medications and trying to wean him off the oxygen. Quality Stroke Does the patient have a stroke diagnosis?: No VTE Prior VTE?: No VTE Risk Level:: Medical - moderate - high VTE Device Contraindication: Treatment Not Indicated VTE Drug Contraindication: N/A - Med Ordered
[2021-05-21 11:27] VITALS: BP 98/65; PULSE 103; RESP 18; TEMP 36.2; O2SAT 98
--- NOTE | 2021-05-21 14:13 | MHC.CM.PN ---
CALL FROM [facility]. UPDATED TOWARDS DC GIVEN. DC POSSIBLE EARLIEST TOMORROW (05/22/21) BUT MORE LIKELY BY THURSDAY (05/24/21)
[2021-05-21 16:00] VITALS: BP 83/51; PULSE 66; RESP 20; TEMP 36.5; O2SAT 98
[2021-05-21] MEDS: 0.9 % Sodium Chloride Flush 3 ML SYRINGE IVFLUSH (17:09)
[2021-05-21] MEDS: Dextrose 5 % and 0.45 % NaCl 1,000 ML 125 ML IVCONT (17:19)
[2021-05-21 19:32] VITALS: BP 103/64; PULSE 77; RESP 18; TEMP 36.5; O2SAT 97
[2021-05-21 23:44] VITALS: BP 96/52; PULSE 67; RESP 18; TEMP 36.2; O2SAT 98
[2021-05-22 03:24] VITALS: BP 103/51; PULSE 72; RESP 16; TEMP 36.2; O2SAT 96
[2021-05-22] MEDS: Omeprazole 40 MG CAPSULE.DR PO (05:36)
--- NOTE | 2021-05-22 06:03 | PC.NURSE ---
Pt's left buttuck has an Allevyn dressing on that is clean/dry and intact. Pt repositioned on right side but is turning himself onto his back. Will pass along in report.
[2021-05-22 06:39] LABS: Anion Gap 9 (12-20); Blood Urea Nitrogen 8 mg/dL (9-16); Calcium 8.3 mg/dL (8.4-10.2); Carbon Dioxide 33 mmol/L (22-29); Chloride 102 mmol/L (96-108); Creatinine Clr Calc Pharmacy 107.7; Estimated Glomerular Filt Rate > 60; Glucose Random 82 mg/dL (60-115); Potassium 4.2 mmol/L (3.3-5.1); Sodium 140 mmol/L (135-145)
[2021-05-22 07:48] VITALS: BP 116/77; PULSE 74; RESP 18; TEMP 36.8; O2SAT 94
[2021-05-22] MEDS: Lactulose 20 GM/30 ML SOLUTION PO (09:21)
[2021-05-22] MEDS: 0.9 % Sodium Chloride Flush 3 ML SYRINGE IVFLUSH ×2 (09:21→17:03)
[2021-05-22] MEDS: Enoxaparin Sodium 40 MG/0.4 ML SYRINGE SUBCUT (09:21)
[2021-05-22] MEDS: Divalproex Sodium 500 MG TABLET.DR PO (09:21)
[2021-05-22 10:53] VITALS: BP 96/52; PULSE 57; RESP 18; TEMP 36.9; O2SAT 98
--- NOTE | 2021-05-22 11:33 | PM.DS ---
DS: Providers Provider Date of Service: 05/22/21 Date of admission: 05/17/21 15:24 Primary care physician: Diana Avendaño MD Consults: 05/18/21 08:15 Consult to General Surgery Routine Consulting Provider: Sudhakar Rodriguez Reason for consultation: SBO\Ileus, severe constipation DS: Diagnosis Discharge Diagnosis (1) Constipation: Status: Acute (2) Acute respiratory failure with hypoxia: Status: Acute (3) Pneumonia: Status: Acute (4) Fecal impaction: Status: Acute DS: Summary Hospital Course Hospital Course: from initial hpi: Chief Complaint: ? Altered mentation, lethargy ?a 65 years old male with PMH of? development chin inch, CRS who [facility] in a jail presented by the staff for altered mentation, decreased oral intake and lethargy. The staff reports that over the last few days he has been less active and? weaker with decreased oral intake.? This morning the found him drooling with altered mentation and he was not responding much so they decided to bring him to the hospital.? The patient is nonverbal, uses Ken lift for transfers and eat pureed diet.? I met with his brother who reported that his mother was taking care of his older brother until she passed and he was moved to jail.? there was a confusion about his code status until his pressors HCP sign and you most form requesting not to do any heroic measures and to treat his brother with dignity a without trying to prolong his life. The patient was found to have significant amount of stool burden with concern of ileus or intestinal obstruction.? Many 1 disimpaction was done in the emergency with success as the patient start having bowel movement and he looks more comfortable when I interviewed him. Images were concerning for possible aspiration as well.? Admitted for further evaluation and treatment. hospital course: Patient was admitted for sepsis and acute hypoxic respiratory failure secondary to aspiration pneumonia. He was treated with IV Zosyn transition to p.o. Augmentin, as hypoxia and sepsis have resolved. He will continue 3 more days of Augmentin. Course was complicated by severe constipation/ileus versus small-bowel obstruction. Patient was disimpacted in the ED, and G-tube was placed. Stomach then became less distended, patient did have positive bowel movements and was able to tolerate pureed diet. Patient should continue on enemas as needed. He was noted to have moderate protein calorie malnutrition with cachexia and a BMI of 16, dietary supplement should be continued. 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 Patient will be discharged back to jail. Time Spent with Patient Time attestation: Total time spent providing and/or coordinating discharge services: Discharge coordination time: Greater than 30 minutes Quality: Stroke Does the patient have a stroke diagnosis?: No Physical Exam Vital Signs: Vital Signs: Last Vital Signs Temp 98.5 F 05/22/21 10:53 Pulse 57 05/22/21 10:53 Resp 18 05/22/21 10:53 BP 96/52 L 05/22/21 10:53 Pulse Ox 98 05/22/21 10:53 BMI result Body Mass Index 15.8 Const Other: Constitutional : Alert, ? looks overall comfortable, very thin and cachectic looking Neck : Normal inspection, Supple Cardiovascular : RRR, S1 S2, no lower extremity edema Respiratory :? failure bilateral air entry decreased mainly on the right side with basal crackles noted, no wheezes Gastrointestinal:? soft, lax,? decreased bowel sounds,? no tenderness noted Skin : Warm, Dry Neurological : Alert , nonverbal, very contracted,No focal deficit can not be assessed DS: Data Data Completed and Pending Labs on day of discharge: Laboratory Results - last 24 hr 05/22/21 05:55 Sodium 140 Potassium 4.2 Chloride 102 Carbon Dioxide 33 H Anion Gap 9 L BUN 8 L Creatinine 0.54 Estim Creat Clear Calc 107.7 Estimated GFR > 60 Random Glucose 82 Calcium 8.3 L Preliminary micro results at discharge 05/17/21 11:04 Blood Culture - Preliminary Blood - Venous No growth after 48 hours. 05/17/21 09:40 Blood Culture - Preliminary Blood - Venous No growth after 48 hours. Discharge Plan Discharge Patient Disposition: Home, Self-Care Discharge Diagnosis: ileus, pna Referrals: Diana Avendaño MD [Primary Care Provider] - 1 Week Discharge Medications: New amoxicillin-pot clavulanate 200-28.5 mg/5 mL Suspension For Reconstitution 500 mg PO BID Qty: 0 0RF Continued multivitamin Tablet 1 tab PO DAILY 0RF divalproex 500 mg tablet,delayed release (DR/EC) 1 tab PO BID 0RF omeprazole 40 mg capsule,delayed release(DR/EC) 1 cap PO DAILY 0RF loratadine 10 mg Tablet 10 mg PO DAILY PRN (Reason: Allergy Symptoms) 0RF Probiotic 1 cap PO DAILY 0RF Discharge Orders: Discharge Order (Routine); Ordered 05/22/21 Ordered By: Dwayne Lowry Diet: advance to usual diet Activity on Discharge: As tolerated Stand Alone Forms: Patient Portal Discharge page Care Plan Goals: avoid hospitalizations Health Concerns: ileus, pna Plan of Treatment: pureed diet, 3 more days of augmentin Assessment: see above
--- NOTE | 2021-05-22 11:42 | MHC.CM.PN ---
DC SUMMARY FAXED TO LACY LAURENT @ [phone] PER REQUEST MESSAGE LEFT FOR MEHRAN @ [phone] FOR CALL BACK TO [facility] FOR TRANSPORT BACK TO RETIREMENT SETTING
--- NOTE | 2021-05-22 14:46 | MHC.CM.PN ---
Addendum entered by Yin Dukes 05/22/21 15:02: [facility] TO TRANSPORT FOR [address] ([phone]) , UNIT, AND RN AWARE Original Note: CALL FROM [facility] RN [address] [facility]AN ([phone]) WHO ASKS THAT CASE MANAGEMENT SET UP AMBUL[place] TRANSP[place]30 [place] [facility] [place]SPORT IS PENDING RECEIPT OF PATIENT'S MEDICATION SIGN-OFF LIST THAT IS SUPPOSED TO BE FAXED TO THIS [employer] REPAIRER FROM [facility], SURESH. SURESH ([phone]) HAS THE [place] [facility] [place] FAXED TO [phone] FROM THIS [employer] REPAIRER
[2021-05-22 15:35] VITALS: BP 98/56; PULSE 77; RESP 18; TEMP 35.3; O2SAT 93
== END 2021-05-22 18:00 | disposition home or self-care (01) | DRG 871 ==
LOC: HO.ED 13:43 → HO.EDOVER 15:37 → HO.S3 05-18 02:28
PROVIDERS: Physician Assistant Medical; Admitting Provider Student in an Organized Health Care Education/Training Program; Emergency Provider Emergency Medicine; PCP Family Medicine; Visit Provider Internal Medicine
DX: A41.9 Sepsis, unspecified organism (principal); J96.01 Acute respiratory failure with hypoxia; J69.0 Pneumonitis due to inhalation of food and vomit; G82.50 Quadriplegia, unspecified; R64 Cachexia; Z68.1 Body mass index [BMI] 19.9 or less, adult; K56.609 Unspecified intestinal obstruction, unspecified as to partial versus complete obstruction; F79 Unspecified intellectual disabilities; K56.41 Fecal impaction; Z86.16 Personal history of COVID-19; Z20.822 Contact with and (suspected) exposure to COVID-19; Z79.899 Other long term (current) drug therapy; Z66 Do not resuscitate
CPT/HCPCS: 36415; 51798; 70450; 71045; 71275; 74018; 74177; 80048; 80053; 83605; 83735; 84484; 85025; 85027; 85610; 87040; 87502; 87635; 96361; 96365; 99285; 99291; J1650; J2543; Q9967

== ENCOUNTER 2021-06-07 17:12 | Emergency (ER) | payer MEDICARE, MEDICAID, SELFPAY ==
--- NOTE | ~2021-06-07 | CT_ITS ---
EXAMINATION: CT ABDOMEN AND PELVIS WITHOUT CONTRAST CLINICAL INFORMATION: Constipation COMPARISON: 05/17/2021 TECHNIQUE: Multidetector volumetric imaging was performed from the lung bases through the pubic symphysis. Sagittal and coronal reformatted images were obtained on the technologist workstation. This CT examination was performed using dose optimization techniques as appropriate, variously including the following: *Automated exposure control *Adjustment of mA and/or kV according to patient size (this includes techniques or standardized protocols for targeted exams where dose is matched to indication/reason for exam; i.e. extremities or head) *Use of iterative reconstruction technique FINDINGS: Poor quality study. The lack of intravenous contrast limits evaluation of the solid visceral organs including the liver, spleen, pancreas, and kidneys. The patient is not centered on the CT table and his arms overlie the lower abdomen and pelvis. LUNG BASES: There is asymmetric elevation of left hemidiaphragm with stomach and colon in the chest. LIVER, GALLBLADDER, AND BILIARY TREE: Limited non-contrast evaluation is normal. No gross focal hepatic lesion. Normal liver size and contour. No gross biliary ductal dilation. The gallbladder is unremarkable with no evidence of radiopaque gallstones, gallbladder wall thickening, or obvious pericholecystic inflammatory changes. PANCREAS: Limited non-contrast evaluation is normal. No ellen-pancreatic fluid. SPLEEN: Limited non-contrast evaluation is normal. ADRENAL GLANDS: Normal; no adrenal mass. KIDNEYS AND URETERS: No hydronephrosis or calculi. Left upper pole simple cyst; no imaging follow-up recommended. GASTROINTESTINAL TRACT: Dilated distal esophagus. Stomach is nondilated. No dilated small bowel. Large volume stool throughout the colon. There is a very large volume of stool in the rectum with mild circumferential rectal wall thickening. There is subtle perirectal fluid and fat stranding. ABDOMINAL WALL: No hernia seen. LYMPH NODES: No pathologically enlarged lymph nodes in the abdomen or pelvis. VASCULAR: Normal caliber abdominal aorta. BLADDER: Unremarkable. PELVIC VISCERA: Unremarkable. OSSEOUS STRUCTURES: No acute or suspicious osseous abnormalities. CT/CT abdomen pelvis wo con IMPRESSION: Very large volume stool in the rectum with mild circumferential rectal wall thickening and subtle perirectal fluid and fat stranding. The appearance is consistent with the distal fecal impaction and there may be subtle developing stercoral colitis.
--- NOTE | ~2021-06-07 | XR_ITS ---
EXAMINATION: XR ABDOMEN KUB CLINICAL INDICATION: Constipation. COMPARISON: 05/21/2021. TECHNIQUE: AP view of the abdomen. FINDINGS: Redemonstration of diffusely gas filled loops of small and large bowel not significantly changed since prior. There is significant amount of stool in the rectum which is increased from prior. Bony structures and soft tissues are within normal limits. XR/XR KUB IMPRESSION: Large amount of stool in the rectum, increased since prior.
[2021-06-07 17:40] VITALS: BP 94/64; PULSE 66; RESP 18; TEMP 36.8; O2SAT 100; BMI 18.8
--- NOTE | 2021-06-07 17:52 | ED_ITS ---
HPI - General Adult General Chief complaint: General Medical Stated complaint: constipation Time Seen by Provider: 06/07/21 17:37 Source: patient Mode of arrival: ambulatory Limitations: no limitations History of Present Illness HPI narrative: This is a 65-year-old male past medical history significant for constipation, intellectual disability nonverbal at baseline presenting to the emergency department with the director of a [facility] was concerned that patient may have not had a bowel movement anywhere between 4-10 days. She tells me that there is no documented bowel movements of the wanted to bring him in for further evaluation. She tells me a few weeks ago he was in with a small-bowel obstruction so they were concerned that he had another 1 today. Other than no noted bowel movements by staff members/no documented bowel movements there is no other concerns. Patient eating and drinking well. Appears comfortable, not able to answer questions however appears to be a node distress. No evidence s igns of trauma. Related Data Home Medications Medication Instructions Recorded Confirmed Probiotic 1 cap PO DAILY 05/17/21 05/17/21 divalproex 500 mg tablet,delayed 1 tab PO BID 05/17/21 05/17/21 release loratadine 10 mg tablet 10 mg PO DAILY PRN 05/17/21 05/17/21 multivitamin 1 tab PO DAILY 05/17/21 05/17/21 omeprazole 40 mg capsule,delayed 1 cap PO DAILY 05/17/21 05/17/21 release Previous Rx's Medication Instructions Recorded amoxicillin 250 mg-potassium 10 ml PO BID #100 ml 05/22/21 clavulanate 62.5 mg/5 mL oral suspension (Augmentin) Allergies Allergy/AdvReac Type Severity Reaction Status Date / Time No Known Allergies Allergy Verified 05/17/21 09:21 Review of Systems Review of Systems: Yes Unobtainable due to mental status PMFSH Past Medical History Attestation statement: The following information was validated with the patient. Source: old records reviewed and nursing notes reviewed Medical History Intellectual disability Family History Family History Brother No problems noted. Social History Social History Housing Other:: [facility] Unable to assess alcohol history related to: Unable to respond and Unknown Patient Tobacco Use Status: Never used Tobacco Advance Directives: No Advance Directives Information Provided: No service: No Current occupational status: disabled Physical Exam ED Vital Signs: Vital Signs - 24 hr 06/07/21 17:40 06/07/21 19:29 06/07/21 20:42 Temperature 98.2 F Pulse Rate 66 77 Respiratory Rate 18 18 Blood Pressure 94/64 120/46 L 102/66 Pulse Oximetry 100 06/07/21 22:38 06/08/21 00:48 Temperature Pulse Rate 76 Respiratory Rate 16 Blood Pressure 107/73 107/70 Pulse Oximetry BMI result Body Mass Index 18.8 Vital signs stable. Appearance: Awake, alert, moving all extremities. No acute distress.? Head: Normocephalic, atraumatic, no step-offs or deformities Eyes: Pupils equal, round and reactive to light.? ENT: Pharynx normal.? Neck: Normal inspection.? Neck supple.? CVS: Normal heart rate and rhythm.? Pulses normal.? Respiratory: No respiratory distress.? Breath sounds normal.? Abdomen: Soft and nontender.? Normoactive bowel sounds. No peritoneal signs. Skin: Skin warm and dry.? Normal skin color.? Normal skin turgor.? Extremities: No lower extremity edema.? No calf ttp. 5/5 strength to bilateral upper and lower extremities Back: No midline tenderness, no C-spine tenderness, full range of motion, no CVA tenderness bilaterally Neuro: Awake, alert moving all extremities no acute distress. Neuro at baseline nonverbal. Course Reevaluation(s) Reevaluation #1: CBC appears to be at patient's baseline. Platelets chronically low. Patient's potassium is noted to be 5.2. He will be given 15 gm of Kayexalate. KUB shows a large amount of stool in the rectum and increased amount when compared to previous study. CT of abdomen pending to r/o obstruction Time: 19:29 Reevaluation #2: Patient has had 4 bowel movements. Abdomen soft non tender non distended. Normal active bowel sounds. Unlikely obstruction. Unlikley ischemic colitis. This was likely constipation a. Patient appears well no acute distress. Vital signs stable. Time: 00:58 Medical Decision Making MDM Narrative Medical decision making narrative: 1756 65 yo m nonverbal d/t intellectual disability presents to the emergency department with a staff worker from his [facility] with concerns of possible constipation unclear when patient's last bowel movement was. According to staff member from [facility] facility in the past for toe 11 days there have not been documented bowel movements. She was concerned that maybe patient has not had 1. It is unclear however. To note patient was in the hospital here earlier in May of this year where he appeared to be constipated. According to a general surgery note Patient is DNR DNI per family request.? His family wishes no surgical intervention as well.? Workup in the emergency department with CT abdomen and pelvis revealed a markedly distended esophagus, stomach, and duodenum with a cutoff at the distal duodenum no obstructing mass is appreciated.? Scar tissue is suspected to be the source of obstruction.? Patient is also noted to have a markedly distended rectum with a large fecal impaction.? He underwent disimpaction in the emergency department.? Surgical consultation is requested regarding chronic constipation . PE with a soft nontender nondistended abdomen with normoactive bowel sounds not consistent with small-bowel obstruction. Nontender upon my exam. Lungs clear. Regular rate and rhythm. Neuro exam appears to be at patient's baseline. Plan at this time is basic labs, KUB. Medical Records Medical records reviewed: Yes I reviewed the patient's medical records. Lab Data Lab results reviewed: Yes I reviewed the patient's lab results. Result diagrams: 06/07/21 18:48 06/07/21 18:48 Labs: Lab Results 06/07/21 06/07/21 Range/Units 18:48 18:48 WBC 7.1 (4.8-10.8) X10*3/uL RBC 3.46 L (4.60-5.80) X10*6/uL Hgb 11.2 L (14.0-18.0) g/dl Hct 33.7 L (42.0-52.0) % MCV 97.4 (80.0-98.0) fL MCH 32.4 (27.0-33.0) pg MCHC 33.2 (31.0-36.0) g/dl RDW 14.6 (11.0-16.0) % Plt Count 139 L D (160-400) X10*3/uL MPV 10.2 (9.4-12.4) fL Immature Gran % (Auto) 0.4 (0.0-0.4) % Neut % (Auto) 44.7 L (45-73) % Lymph % (Auto) 44.2 H (20-40) % [place] % (Auto) 9.0 (2-11) % Eos % (Auto) 1.0 (0-4) % Baso % (Auto) 0.7 (0-2) % Lymph # (Auto) 3.1 (1.2-4.9) X10*3/uL [place] # (Auto) 0.6 (0.1-1.2) X10*3/uL Eos # (Auto) 0.1 (0.0-0.4) X10*3/uL Baso # (Auto) 0.1 (0.0-0.2) X10*3/uL Abs Immat Gran (auto) 0.03 (0.00-0.03) X10*3/uL Absolute Neuts (auto) 3.2 (2.0-8.3) x10*3/uL Absolute Nucleated RBC 0.000 (0.0-0.012) X10*3/uL Nucleated RBC % (auto) 0.0 (0.0-0.2) /100WBC Smear Tech's Comments VERIFIED Sodium 137 (135-145) mmol/L Potassium 5.2 H D (3.3-5.1) mmol/L Chloride 103 (96-108) mmol/L Carbon Dioxide 26 (22-29) mmol/L Anion Gap 13 (12-20) BUN 18 H D (9-16) mg/dL Creatinine 0.60 (0.5-1.4) mg/dL Estim Creat Clear Calc 97.0 Estimated GFR > 60 Random Glucose 69 (60-115) mg/dL Calcium 8.8 D (8.4-10.2) mg/dL Magnesium 1.9 (1.6-2.6) mg/dL Total Bilirubin 0.2 (0.0-1.0) mg/dL AST 42 H (5-37) U/L ALT 17 (0-40) U/L Alkaline Phosphatase 49 D (39-117) U/L Total Protein 8.0 (6.5-8.0) g/dL Albumin 3.2 L (3.5-5.0) g/dL Critical Care Time Critical Care Time Critical Care Time: No Discharge Plan Discharge Clinical Impression: Constipation Patient Disposition: Home, Self-Care Instructions: Constipation (ED) Additional Instructions: Take your medications as prescribed. If you were prescribed antibiotics today, it is important that you take your medication to their entirety, do not skip any doses, do not finish them early. Follow-up with your primary care provider this week. Return to the emergency department with new or worsening symptoms. Such as fevers, chills, chest pain, shortness of breath, nausea, vomiting, dizziness, headache, vision changes, lethargy In case of emergency call 911 Patient can take [id number] stool softeners Colace and senna as needed for constipation and MiraLax. Prescriptions: No Action multivitamin Tablet 1 tab PO DAILY 0RF divalproex 500 mg tablet,delayed release (DR/EC) 1 tab PO BID 0RF omeprazole 40 mg capsule,delayed release(DR/EC) 1 cap PO DAILY 0RF loratadine 10 mg Tablet 10 mg PO DAILY PRN (Reason: Allergy Symptoms) 0RF Probiotic 1 cap PO DAILY 0RF amoxicillin-pot clavulanate [Augmentin] 250-62.5 mg/5 mL suspension for reconstitution 10 ml PO BID Qty: 100 0RF Referrals: Physician,Unknown J [Primary Care Provider] - 2 days
[2021-06-07] MEDS: 0.9 % Sodium Chloride 1,000 ML 999 ML IV (18:50)
[2021-06-07 18:58] LABS: Eosinophils Absolute Auto 0.1 X10*3/uL (0.0-0.4); Hemoglobin 11.2 g/dl (14.0-18.0); Imm Gran Abs Auto 0.03 X10*3/uL (0.00-0.03); Imm Gran Pct Auto 0.4 % (0.0-0.4); Lymphocytes Percent Auto 44.2 % (20-40); MANUAL DIFF FLAG SCAN; Monocytes Absolute Auto 0.6 X10*3/uL (0.1-1.2); Neutrophils Absolute Auto 3.2 x10*3/uL (2.0-8.3); PLT CLUMP 1; Red Cell Distribution Width 14.6 % (11.0-16.0); SCAN SMEAR FLAG 1
[2021-06-07 19:00] LABS: Basophils Absolute Auto 0.1 X10*3/uL (0.0-0.2); Basophils Percent Auto 0.7 % (0-2); Hematocrit 33.7 % (42.0-52.0); Lymphocytes Absolute Auto 3.1 X10*3/uL (1.2-4.9); Mean Corpuscular HGB Conc 33.2 g/dl (31.0-36.0); Mean Corpuscular Hemoglobin 32.4 pg (27.0-33.0); Mean Corpuscular Volume 97.4 fL (80.0-98.0); Mean Platelet Volume 10.2 fL (9.4-12.4); Neutrophils Percent Auto 44.7 % (45-73); Red Blood Count 3.46 X10*6/uL (4.60-5.80)
[2021-06-07 19:07] LABS: Platelet Count 139 X10*3/uL (160-400); White Blood Count 7.1 X10*3/uL (4.8-10.8)
[2021-06-07 19:21] LABS: Alanine Aminotransferase 17 U/L (0-40); Albumin Level 3.2 g/dL (3.5-5.0); Alkaline Phosphatase 49 U/L (39-117); Anion Gap 13 (12-20); Aspartate Amino Transferase 42 U/L (5-37); Bilirubin Total 0.2 mg/dL (0.0-1.0); Blood Urea Nitrogen 18 mg/dL (9-16); Calcium 8.8 mg/dL (8.4-10.2); Carbon Dioxide 26 mmol/L (22-29); Chloride 103 mmol/L (96-108); Estimated Glomerular Filt Rate > 60; Glucose Random 69 mg/dL (60-115); Magnesium 1.9 mg/dL (1.6-2.6); Potassium 5.2 mmol/L (3.3-5.1); Sodium 137 mmol/L (135-145)
[2021-06-07 19:25] LABS: SLIDE REVIEW VERIFIED
[2021-06-07 19:29] VITALS: BP 120/46; RESP 18
[2021-06-07] MEDS: Docusate Sodium 100 MG CAPSULE PO (19:39)
[2021-06-07] MEDS: Sodium Polystyrene Sulfon/Sorb 15 GM/60 ML ORAL.SUSP PO (19:39)
[2021-06-07 20:42] VITALS: BP 102/66; PULSE 77
[2021-06-07] MEDS: diphenhydrAMINE HCL 50 MG/ML VIAL 25 MG IVPUSH (20:42)
[2021-06-07 22:38] VITALS: BP 107/73
[2021-06-08 00:48] VITALS: BP 107/70; PULSE 76; RESP 16
== END 2021-06-08 03:27 | disposition home or self-care (01) ==
PROVIDERS: Physician Assistant; Emergency Provider Emergency Medicine Emergency Medical Services
DX: K59.00 Constipation, unspecified (principal)
CPT/HCPCS: 36415; 74018; 74176; 80053; 83735; 85025; 96361; 96374; 99284; J1200